=== PATIENT | male | born 1990 | race African-American/Black ===

== ENCOUNTER 2019-04-27 16:22 | Inpatient (IN) | payer OTHER ==
[~2019-04-27] VITALS: Ht 177.8 cm; Wt 65.4 kg
[2019-04-27 16:40] VITALS: BP 138/85
[2019-04-27] MEDS ORDERED: Albuterol ud Inhalation HHN ONE (16:45)
--- NOTE | 2019-04-27 17:00 | NUR ---
ED Nurse Note:pt. came with c/o chest pain on inhalation, pt. A/Ox4 ambulatory, EKG done , VSS, blood and urine sent to labs
[2019-04-27 17:08] LABS: BASOPHILS % (AUTO) 0.7 % (0.0-2.0); EOSINOPHILS % (AUTO) 1.2 % (0.0-3.0); HEMATOCRIT 44.9 % (42.0-52.0); HEMOGLOBIN 14.6 G/DL (14.2-18.0); LYMPHOCYTES % (AUTO) 19.4 % (20.0-45.0); MEAN CORPUSCULAR VOLUME 87 FL (80-99); MONOCYTES % (AUTO) 5.4 % (1.0-10.0); NEUTROPHILS % (AUTO) 73.4 % (45.0-75.0); PLATELET COUNT 304 K/UL (150-450); RED BLOOD COUNT 5.18 M/UL (4.70-6.10); RED CELL DISTRIBUTION WIDTH 12.6 % (11.6-14.8); WHITE BLOOD COUNT 10.1 K/UL (4.8-10.8)
--- NOTE | 2019-04-27 17:15 | Diagnostic Imaging Report ---
Indication: Chest pain and shortness of breath Technique: One view of the chest Comparison: none Findings: There is a very large right pneumothorax, probably greater than 70%. No definite mediastinal shift to suggest tension. The left lung and pleural space are clear. The heart size is normal. Impression: Massive right pneumothorax. No definite evidence of tension Critical value findings phoned to physician assistant Moseley in the emergency room at the time of interpretation
[2019-04-27 17:19] LABS: APPEARANCE,URINE CLEAR; BILIRUBIN, URINE NEGATIVE (NEGATIVE); GLUCOSE, URINE (UA) NEGATIVE (NEGATIVE); KETONES,URINE NEGATIVE (NEGATIVE); LEUKOCYTE ESTERASE ,URINE NEGATIVE (NEGATIVE); NITRITE,URINE NEGATIVE (NEGATIVE); PH,URINE 6 (4.5-8.0); PROTEIN,URINE NEGATIVE (NEGATIVE); UROBILINOGEN,URINE NORMAL MG/DL (0.0-1.0)
[2019-04-27 17:23] LABS: COLOR,URINE YELLOW
[2019-04-27 17:27] LABS: ANION GAP 9 mmol/L (5-15); BLOOD UREA NITROGEN 7 mg/dL (7-18); CALCIUM 9.7 MG/DL (8.5-10.1); CARBON DIOXIDE 27 MMOL/L (21-32); CHLORIDE 109 MMOL/L (98-107); POTASSIUM 3.9 MMOL/L (3.5-5.1); SODIUM 145 MMOL/L (136-145)
[2019-04-27 17:29] LABS: INR 0.9 (0.9-1.1)
[2019-04-27 17:32] LABS: ALANINE AMINOTRANSFERASE 26 U/L (12-78); ALBUMIN 3.9 G/DL (3.4-5.0); ALBUMIN/GLOBULIN RATIO 1.1 (1.0-2.7); ALKALINE PHOSPHATASE 75 U/L (46-116); ASPARTATE AMINO TRANSFERASE 21 U/L (15-37); BILIRUBIN,TOTAL 0.4 MG/DL (0.2-1.0)
--- NOTE | 2019-04-27 18:00 | NUR ---
ED Nurse Note: Dr Boateng at the bed side for chest tube insertion. Low intermittent suction at 40mmhg.
--- NOTE | 2019-04-27 18:04 | Consultation ---
History of Present Illness General Date patient seen: Apr 27, 2019 Reason for Hospitalization: Chest Pain Present Illness HPI 28[place] [facility] [place] right chest discomfort and pressure with associated shortness of breath with acute onset this afternoon. Came to ED for evaluation and noted to have right spontaneous pneumothorax. no prior episodes. +smoker. no n/v/f/c. labs noted. surgery called to evaluate and assist with tube thoracostomy. patient seen in ED, chart reviewed, patient examined. films reviewed. Allergies: Coded Allergies: No Known Allergies (Unverified , 04/27/19) Medication History No Active Prescriptions or Reported Meds Patient History History Provided By: Patient, Medical Record, PMD Healthcare decision maker Resuscitation status Advanced Directive on File Past Medical/Surgical History Past Medical/Surgical History: (1) Pneumothorax on right Review of Systems Review of Symptoms General ROS: no weight loss or fever Psychological ROS: no depression or mood changes, no memory loss Ophthalmic ROS: no visual changes or eye irritation ENT ROS: no nasal congestion, hearing loss, dizziness Allergy and Immunology ROS: no allergic symptoms or urticaria Hematological and Lymphatic ROS: no swollen glands, unusual bleeding or bruising Endocrine ROS: no polyuria, polydipsia, weight changes, temperature intolerance Respiratory ROS: no cough, +shortness of breath, or wheezing Cardiovascular ROS: no chest pain or dyspnea on exertion Gastrointestinal ROS: denies abdominal pain, no bright red blood in stool. Musculoskeletal ROS: no myalgias or arthralgias Neurological ROS: no TIA or stroke symptoms Dermatological ROS: no new or changing skin lesions, rashes or pruritis Physical Exam Physical Exam General appearance: alert, cooperative, no distress, appears stated age Head: Normocephalic, without obvious abnormality, atraumatic Eyes: conjunctivae/corneas clear. PERRL, EOM's intact. Fundi benign Throat: Lips, mucosa, and tongue normal. Teeth and gums normal Neck: supple, symmetrical, trachea midline, no adenopathy, thyroid: not enlarged, symmetric, no tenderness/mass/nodules, no carotid bruit and no JVD Lungs: clear to auscultation bilaterally but decreased on right Heart: regular rate and rhythm, S1, S2 normal, no murmur, click, rub or gallop Abdomen: soft, non-tender. Bowel sounds normal. No masses, no organomegaly Extremities: extremities normal, atraumatic, no cyanosis or edema Pulses: 2+ and symmetric Skin: Skin color, texture, turgor normal. No rashes or lesions Neurologic: Grossly normal Last 24 Hour Vital Signs Date Time Temp Pulse Resp B/P (MAP) Pulse Ox O2 Delivery O2 Flow Rate FiO2 04/27/19 16:54 71 20 98 Room Air 21 71 20 98 04/27/19 16:54 71 20 98 Room Air 21 04/27/19 16:40 98.1 76 18 138/85 98 Room Air 04/27/19 16:34 75 18 Room Air 04/27/19 16:25 98.1 75 18 138/85 (102) 98 Room Air Laboratory Tests Test 04/27/19 16:45 White Blood Count 10.1 K/UL (4.8-10.8) Red Blood Count 5.18 M/UL (4.70-6.10) Hemoglobin 14.6 G/DL (14.2-18.0) Hematocrit 44.9 % (42.0-52.0) Mean Corpuscular Volume 87 FL (80-99) Mean Corpuscular Hemoglobin 28.1 PG (27.0-31.0) Mean Corpuscular Hemoglobin Concent 32.5 G/DL (32.0-36.0) Red Cell Distribution Width 12.6 % (11.6-14.8) Platelet Count 304 K/UL (150-450) Mean Platelet Volume 6.0 FL (6.5-10.1) L Neutrophils (%) (Auto) 73.4 % (45.0-75.0) Lymphocytes (%) (Auto) 19.4 % (20.0-45.0) L Monocytes (%) (Auto) 5.4 % (1.0-10.0) Eosinophils (%) (Auto) 1.2 % (0.0-3.0) Basophils (%) (Auto) 0.7 % (0.0-2.0) Prothrombin Time 10.0 SEC (9.30-11.50) Prothromb Time International Ratio 0.9 (0.9-1.1) Activated Partial Thromboplast Time 27 SEC (23-33) Urine Color Yellow Urine Appearance Clear Urine pH 6 (4.5-8.0) Urine Specific [place] 1.015 (1.005-1.035) Urine Protein Negative (NEGATIVE) Urine Glucose (UA) Negative (NEGATIVE) Urine Ketones Negative (NEGATIVE) Urine Blood Negative (NEGATIVE) Urine Nitrite Negative (NEGATIVE) Urine Bilirubin Negative (NEGATIVE) Urine Urobilinogen Normal MG/DL (0.0-1.0) Urine Leukocyte Esterase Negative (NEGATIVE) Urine RBC 0-2 /HPF (0 - 0) H Urine WBC 0-2 /HPF (0 - 0) Urine Squamous Epithelial Cells None /LPF (NONE/OCC) Urine Bacteria None /HPF (NONE) Sodium Level 145 MMOL/L (136-145) Potassium Level 3.9 MMOL/L (3.5-5.1) Chloride Level 109 MMOL/L (98-107) H Carbon Dioxide Level 27 MMOL/L (21-32) Anion Gap 9 mmol/L (5-15) Blood Urea Nitrogen 7 mg/dL (7-18) Creatinine 1.0 MG/DL (0.55-1.30) Estimat Glomerular Filtration Rate > 60 mL/min (>60) Glucose Level 96 MG/DL (74-106) Calcium Level 9.7 MG/DL (8.5-10.1) Total Bilirubin 0.4 MG/DL (0.2-1.0) Aspartate Amino Transf (AST/SGOT) 21 U/L (15-37) Alanine Aminotransferase (ALT/SGPT) 26 U/L (12-78) Alkaline Phosphatase 75 U/L (46-116) Total Protein 7.3 G/DL (6.4-8.2) Albumin 3.9 G/DL (3.4-5.0) Globulin 3.4 g/dL Albumin/Globulin Ratio 1.1 (1.0-2.7) Urine Opiates Screen Negative (NEGATIVE) Urine Barbiturates Screen Negative (NEGATIVE) Phencyclidine (PCP) Screen Negative (NEGATIVE) Urine Amphetamines Screen Negative (NEGATIVE) Urine Benzodiazepines Screen Negative (NEGATIVE) Urine Cocaine Screen Negative (NEGATIVE) Urine Marijuana (THC) Screen Positive (NEGATIVE) H Height (Feet): 5 Height (Inches): 10.00 Weight (Pounds): 150 Assessment/Plan Problem List: (1) Pneumothorax on right Assessment & Plan: 28M with spontaneous right pneumothorax. afebrile, HD stable, sob, right chest pressure. CXR noted. labs okay Right tube thoracostomy placed in ED. see note Admit okay for diet chest tube to suction AM CXR will follow and manage tube thank you ICD Codes: J93.9 - Pneumothorax, unspecified SNOMED: [id number] Asif Boateng Apr 27, 2019 18:04
--- NOTE | 2019-04-27 18:05 | Brief Operative Note ---
Immediate Post Operative Note Operative Note Pre-op Diagnosis: right pneumothorax Procedure: right tube thoracostomy Post-op Diagnosis: same as pre-op Surgeon: jesús Anesthesia: local Specimen: none Complications: none Condition: stable Fluids: n/a Estimated Blood Loss: minimal Drains: other Implant(s) used?: Asif Enriquez Apr 27, 2019 18:05
--- NOTE | 2019-04-27 19:13 | NUR ---
HAND-OFF: Report given to Marisela SHUKLA.
--- NOTE | 2019-04-27 19:29 | Emergency Room Report ---
History of Present Illness General Chief Complaint: Chest Pain Source: Patient, Medical Record, PMD Present Illness HPI 28-year-old male with no significant past medical history here complaining of sudden onset of chest pain that started yesterday as well as shortness of breath. Patient reports that he occasionally smokes marijuana however he smoked a lot of marijuana yesterday. Denies palpitation, pain radiation to left arm or jaw. Denies dizziness and headache, blurry vision, abdominal pain, nausea vomiting. Patient denies history of asthma, smoking tobacco, alcohol intake and other drug use. Denies urinary symptoms. Has not taken medication for symptom relief. Is sitting comfortably with minimal shortness of breath. No wheezing noted however distant breath sounds auscultated. Patient has normal vital signs. Denies hemoptysis. Fall or injury, heavy lifting. Denies recent URI symptoms, fever and chills, cough. Denies pleuritic chest pain, swelling in legs, having a sedentary lifestyle, recent travel or operation. Allergies: Coded Allergies: No Known Allergies (Unverified , 04/27/19) Patient History Past Medical History: see triage record Past Surgical History: unable to obtain Pertinent Family History: unable to obtain Immunizations: UTD Reviewed Nursing Documentation: PMH: Agreed; PSxH: Agreed Nursing Documentation-PMH Past Medical History: No Stated History Review of Systems All Other Systems: negative except mentioned in HPI Physical Exam Vital Signs Date Time Temp Pulse Resp B/P (MAP) Pulse Ox O2 Delivery O2 Flow Rate FiO2 04/27/19 16:25 98.1 75 18 138/85 (102) 98 Room Air 04/27/19 16:54 21 Sp02 EP Interpretation: reviewed, normal General Appearance: alert, GCS 15, non-toxic, mild distress Head: normocephalic, atraumatic Eyes: bilateral eye normal inspection, bilateral eye PERRL ENT: hearing grossly normal, normal pharynx, no angioedema, normal voice Neck: full range of motion, supple/symm/no masses Respiratory: chest non-tender, no retraction, no accessory muscle use, no wheezing, speaking full sentences, other - Distant breath breath sounds noted, palpation of chest normal Cardiovascular #1: regular rate, rhythm, no edema, no murmur Cardiovascular #2: 2+ radial (R), 2+ radial (L) Gastrointestinal: normal bowel sounds, non tender, soft, non-distended, no guarding, no rebound Rectal: deferred Genitourinary: normal inspection, no CVA tenderness Musculoskeletal: back normal, gait/station normal, normal range of motion, non- tender, no calf tenderness Neurologic: alert, oriented x3, responsive, motor strength/tone normal, sensory intact, speech normal Psychiatric: judgement/insight normal, memory normal, mood/affect normal, no suicidal/homicidal ideation Skin: no rash Lymphatic: no adenopathy Medical Decision Making PA Attestation All my diagnosis and treatment plans were reviewed ad discussed with my supervising physician Dr. Solis Diagnostic Impression: Primary Impression: Pneumothorax, right ER Course 28-year-old male with no significant past medical history here complaining of sudden onset of chest pain that started yesterday as well as shortness of breath. Patient reports that he occasionally smokes marijuana however he smoked a lot of marijuana yesterday. Denies palpitation, pain radiation to left arm or jaw. Denies dizziness and headache, blurry vision, abdominal pain, nausea vomiting. Patient denies history of asthma, smoking tobacco, alcohol intake and other drug use. Denies urinary symptoms. Has not taken medication for symptom relief. Is sitting comfortably with minimal shortness of breath. No wheezing noted however distant breath sounds auscultated. Patient has normal vital signs. Denies hemoptysis. Fall or injury, heavy lifting. Denies recent URI symptoms, fever and chills, cough. Denies pleuritic chest pain, swelling in legs, having a sedentary lifestyle, recent travel or operation. Ddx considered but are not limited to: RI, Angina, COPD, GERD, , pneumothorax, pleural effusion, pneumonia Vital signs: are WNL, pt. is afebrile H&PE are most consistent with pneumothorax ORDERS: EKG, Chest XR, cardiac labs(troponin, CBC, CMP, lipid) ED INTERVENTIONS: Chest tube insertion, morphine Patient was admited with diagnosis of pneumothorax to Dr. Dallas under supervision of Dr.: Solis Chest tube insertion was done by . Patient was stable after chest tube insertion. pt stable at time of admission EKG Diagnostic Results Rate: normal Rhythm: NSR ST Segments: no acute changes Chest X-Ray Diagnostic Results Chest X-Ray Diagnostic Results : Chest X-Ray Ordered: Yes # of Views/Limited/Complete: 1 View Indication: Chest Pain EP Interpretation: Brittaney SHARMA Xray: Interpretation reviewed, by supervising MD, and agrees with findings. Interpretation: other - right pneumothorax Impression: Other - rigth pneumothorax Electronically Signed by: Paul Lindquist PA-C Last Vital Signs Date Time Temp Pulse Resp B/P (MAP) Pulse Ox O2 Delivery O2 Flow Rate FiO2 04/27/19 16:54 71 20 98 Room Air 21 71 20 98 04/27/19 16:40 98.1 138/85 Disposition: ADMITTED INPATIENT Condition: Stable Scripts No Active Prescriptions or Reported Meds Referrals: NON PHYSICIAN (PCP) Paul Purcell Apr 27, 2019 19:29
[2019-04-27] MEDS ORDERED: Morphine Sulfate 4mg/ml Inj (IV USE ONLY) IVP ONE (19:30)
--- NOTE | 2019-04-27 21:30 | NUR ---
TRANSFER TO FLOOR: Patient transferred to as ordered, per Dr Chacon. Report given to VAZQUEZ Trevino . Belongings and medications given to . Family and or S/O informed of transfer.
[2019-04-27 22:00] VITALS: BP 129/81
--- NOTE | 2019-04-27 22:30 | NUR ---
NURSE NOTES: Received patient and report from VAZQUEZ Antonio from ED, transported via gurney. Patient sitting in bed awake showing no signs of acute distress. AOx4. Respiration even and non labored on room air. No sob noted. Right chest tube drainage noted, dressing intact, on continuous suction. No drains noted. phototypesetting equipment monitor on showing sinus rhythm. Oriented to room and unit. VS stable. Call light within reach. Wheels locked, alarm on, side rails up x2 and bed in lowest position. Spoke with Dr. Martinez for admission orders, noted and carried out. All needs attended and met. Will continue plan of care.
--- NOTE | 2019-04-27 22:48 | Pulmonology Progress Note ---
Assessment/Plan Assessment/Plan Pulmonary Consultation HPI Patient is a 28-year-old male with no significant past medical history here complaining of sudden onset of chest pain that started yesterday while smoking a large joint, also c/o shortness of breath. Patient reports that he occasionally smokes marijuana however he smoked a lot of marijuana yesterday. Denies palpitation, pain radiation to left arm or jaw. Denies dizziness and headache, blurry vision, abdominal pain, nausea vomiting. Patient denies history of asthma, smoking tobacco, alcohol intake and other drug use. Denies urinary symptoms. Has not taken medication for symptom relief. Is sitting comfortably with minimal shortness of breath. No wheezing noted however distant breath sounds auscultated. Patient has normal vital signs. Denies hemoptysis. Fall or injury, heavy lifting. Denies recent URI symptoms, fever and chills, cough. Denies pleuritic chest pain, swelling in legs, having a sedentary lifestyle, recent travel or operation. No previous PTX. Allergies: No Known Allergies Past Medical History: No Stated History All Other Systems: negative except mentioned in HPI Physical Exam Vital Signs Noted Date Time Temp Pulse Resp B/P (MAP) Pulse Ox O2 Delivery O2 Flow Rate FiO2 04/27/19 16:25 98.1 75 18 138/85 (102) 98 Room Air 04/27/19 16:54 21 General Appearance: alert, GCS 15, non-toxic, mild distress Head: normocephalic, atraumatic Eyes: bilateral eye normal inspection, bilateral eye PERRL ENT: hearing grossly normal, normal pharynx, no angioedema, normal voice Neck: full range of motion, supple/symm/no masses, No LN Respiratory: chest non-tender, no retraction, no accessory muscle use, no wheezing, speaking full sentences, right chest tube, palpation of chest normal Cardiovascular: regular rate, rhythm, Normal HS, no edema, no murmur Gastrointestinal: normal bowel sounds, non tender, soft, non-distended, no guarding, no rebound Genitourinary: normal inspection, no CVA tenderness Musculoskeletal: back normal, gait/station normal, normal range of motion, non- tender, no calf tenderness, long fingers Neurologic: alert, oriented x3, responsive, motor strength/tone normal, sensory intact, speech normal Impression: Right spontaneous pneumothorax Plan: S/p Right chest tube O2 PRN Pain meds EKG: Rate: normal Rhythm: NSR ST Segments: no acute changes Chest X-Ray: Large right pneumothorax Subjective ROS Limited/Unobtainable: No Respiratory: Reports: shortness of breath Allergies: Coded Allergies: No Known Allergies (Unverified , 04/27/19) Objective Last 24 Hour Vital Signs Date Time Temp Pulse Resp B/P (MAP) Pulse Ox O2 Delivery O2 Flow Rate FiO2 04/27/19 21:30 98.1 76 20 138/85 98 Room Air 21 04/27/19 20:22 98.1 04/27/19 16:54 71 20 98 Room Air 21 71 20 98 04/27/19 16:54 71 20 98 Room Air 21 04/27/19 16:40 98.1 76 18 138/85 98 Room Air 04/27/19 16:34 75 18 Room Air 04/27/19 16:25 98.1 75 18 138/85 (102) 98 Room Air Microbiology Date/Time Source Procedure Growth Status 04/27/19 21:15 Rectum Received Laboratory Tests 04/27/19 16:45: White Blood Count 10.1, Red Blood Count 5.18, Hemoglobin 14.6, Hematocrit 44.9, Mean Corpuscular Volume 87, Mean Corpuscular Hemoglobin 28.1, Mean Corpuscular Hemoglobin Concent 32.5, Red Cell Distribution Width 12.6, Platelet Count 304, Mean Platelet Volume 6.0L, Neutrophils (%) (Auto) 73.4, Lymphocytes (%) (Auto) 19.4L, Monocytes (%) (Auto) 5.4, Eosinophils (%) (Auto) 1.2, Basophils (%) (Auto ) 0.7, Prothrombin Time 10.0, Prothromb Time International Ratio 0.9, Activated Partial Thromboplast Time 27, Urine Color Yellow, Urine Appearance Clear, Urine pH 6, Urine Specific [place] 1.015, Urine Protein Negative, Urine Glucose (UA) Negative, Urine Ketones Negative, Urine Blood Negative, Urine Nitrite Negative, Urine Bilirubin Negative, Urine Urobilinogen Normal, Urine Leukocyte Esterase Negative, Urine RBC 0-2H, Urine WBC 0-2, Urine Squamous Epithelial Cells None, Urine Bacteria None, Sodium Level 145, Potassium Level 3.9, Chloride Level 109H , Carbon Dioxide Level 27, Anion Gap 9, Blood Urea Nitrogen 7, Creatinine 1.0, Estimat Glomerular Filtration Rate > 60, Glucose Level 96, Calcium Level 9.7, Total Bilirubin 0.4, Aspartate Amino Transf (AST/SGOT) 21, Alanine Aminotransferase (ALT/SGPT) 26, Alkaline Phosphatase 75, Total Protein 7.3, Albumin 3.9, Globulin 3.4, Albumin/Globulin Ratio 1.1, Urine Opiates Screen Negative, Urine Barbiturates Screen Negative, Phencyclidine (PCP) Screen Negative, Urine Amphetamines Screen Negative, Urine Benzodiazepines Screen Negative, Urine Cocaine Screen Negative, Urine Marijuana (THC) Screen PositiveH Current Medications Medications (Trade) Dose Ordered Sig/Magda Route PRN Reason Start Time Stop Time Status Last Admin Dose Admin Acetaminophen (Tylenol) 650 mg Q4H PRN ORAL Mild Pain/Temp > 100.5 04/27/19 22:15 05/27/19 22:14 Merrick Hernandez MD Apr 27, 2019 22:48
[2019-04-27] MEDS ORDERED: Hydromorphone 0.5mg/0.5ml inj IVP PRN (23:00)
[2019-04-27] MEDS ORDERED: Albuterol/Ipratropium 3ml neb HHN PRN (23:00)
--- NOTE | 2019-04-27 23:15 | Operative Note - Dictated ---
DATE OF OPERATION: 04/27/2019 PREOPERATIVE DIAGNOSIS: Right spontaneous pneumothorax. POSTOPERATIVE DIAGNOSIS: Right spontaneous pneumothorax. OPERATION PERFORMED: Right tube thoracostomy. ATTENDING SURGEON: Asif Boateng M.D. LATHE SET UP PERSON: None. ANESTHESIOLOGIST: Not applicable. ANESTHESIA: Local anesthetic, lidocaine 1% with epinephrine. DRAINS: Right chest tube placed to Pleur-evac. WOUND CLASSIFICATION: Class I. COUNTS: Sponge and needle count correct x2. COMPLICATIONS: None. INDICATIONS FOR PROCEDURE: This is a 28-year-old male, who presented to [facility] Emergency Department complaining of worsening right-sided pressure and shortness of breath. Chest x-ray identified a right spontaneous pneumothorax. Right tube thoracostomy was indicated and recommended. Risks, benefits, and alternatives were discussed with the patient in detail, who expressed understanding and consented to surgery. OPERATIVE NOTE: The patient was made comfortable at the bedside in the emergency department. The right chest wall was prepped and draped in standard surgical fashion. The ribs were identified and the midaxillary line on the right side at the level the nipple was noted. This area was prepped and draped accordingly. Local anesthetic was infiltrated about the 6th intercostal rib margin. Once appropriate anesthetic effect was achieved with lidocaine 1% with epinephrine around the periosteum, muscles, skin and subcutaneous tissue, Seldinger technique was used to place a 10-Angolan pigtail tube thoracostomy. A finder needle was used and placed into the chest at approximately 6th rib intercostal space at the superior aspect of the rib margin. Once air flow was identified, a catheter sheath was forwarded over the needle. Guidewire was placed over the the catheter sheath and catheter sheath was removed. Following this, small skin incisions were made around the guidewire and the dilators were used and the tract dilated. Finally, a pigtail 10-Angolan tube was inserted over the guidewire without complication. Guidewire was removed and pigtail was initiated. The pigtail catheter was placed to the Pleur-evac, which was then placed to low suction. The site was again cleansed and appropriate dressings were applied followed by taping the tube to the patient to ensure it does not get dislodged. The patient tolerated the procedure well. Postprocedure x-ray was performed and the right lung was insufflated and no complication noted. The patient will be admitted following with chest tube suction until ready to be removed. We will monitor and manage tube. Asif Boateng M.D. DR: JILLIAN JOB#: [id number] CC:
[2019-04-28] VITALS: BP 118/68
[2019-04-28] MEDS: HYDROcodone/Acetamin 5/325 tab ORAL PRN ×3 (00:25→20:33)
[2019-04-28 04:00] VITALS: BP 113/73
[2019-04-28 06:53] LABS: BASOPHILS % (AUTO) 0.7 % (0.0-2.0); EOSINOPHILS % (AUTO) 3.6 % (0.0-3.0); HEMATOCRIT 39.6 % (42.0-52.0); HEMOGLOBIN 12.7 G/DL (14.2-18.0); LYMPHOCYTES % (AUTO) 26.7 % (20.0-45.0); MEAN CORPUSCULAR VOLUME 87 FL (80-99); MONOCYTES % (AUTO) 7.8 % (1.0-10.0); NEUTROPHILS % (AUTO) 61.2 % (45.0-75.0); PLATELET COUNT 251 K/UL (150-450); RED BLOOD COUNT 4.55 M/UL (4.70-6.10); RED CELL DISTRIBUTION WIDTH 12.7 % (11.6-14.8); WHITE BLOOD COUNT 8.6 K/UL (4.8-10.8)
[2019-04-28 06:58] LABS: ALANINE AMINOTRANSFERASE 24 U/L (12-78); ALBUMIN 3.3 G/DL (3.4-5.0); ALBUMIN/GLOBULIN RATIO 1.1 (1.0-2.7); ALKALINE PHOSPHATASE 67 U/L (46-116); ANION GAP 8 mmol/L (5-15); ASPARTATE AMINO TRANSFERASE 17 U/L (15-37); BILIRUBIN,TOTAL 0.6 MG/DL (0.2-1.0); BLOOD UREA NITROGEN 6 mg/dL (7-18); CALCIUM 8.9 MG/DL (8.5-10.1); CARBON DIOXIDE 26 MMOL/L (21-32); CHLORIDE 111 MMOL/L (98-107); POTASSIUM 3.9 MMOL/L (3.5-5.1); SODIUM 145 MMOL/L (136-145)
--- NOTE | 2019-04-28 07:10 | NUR ---
HAND-OFF: Report given to VAZQUEZ Chow.
--- NOTE | 2019-04-28 07:15 | NUR ---
NURSE NOTES: Received patient from VAZQUEZ Trevino. Patient is resting in bed, sleeping in stable condition. No signs of acute distress at this moment. Respiration non labored on room air. No sob noted. Chest tube is in place with no drainage.Call light and bed side table within reach, Bed in lowest position, with two side rails up, wheels locked and alarm on. Will continue to monitor and follow plan of care.
[2019-04-28 08:00] VITALS: BP 113/72
--- NOTE | 2019-04-28 09:32 | NUR ---
*-* NO INSURANCE INFORMATION IN THE BAR UNABLE TO SEND CLINICALS OR REVIEWS *-*
[2019-04-28 12:00] VITALS: BP 119/76
--- NOTE | 2019-04-28 12:30 | NUR ---
NURSE NOTES: Patient discharged home with hospice care per Dr. Fritz's order. All discharge instructions explained to patient's daughters , verbalized understanding. Heart monitor removed and returned to quality assurance monitor. IV removed. Patient went home with the ambulance provided by family with her daughters and in stable condition. Addendum: 04/28/19 at 1556 by DANICA DSOUZA RN RN NURSE NOTES: Charting in wrong patient.
--- NOTE | 2019-04-28 13:42 | Diagnostic Imaging Report ---
Indication: Pneumothorax. Follow-up. Comparison: 16:51 A single view chest radiograph was obtained. Findings: Current study performed at 18:03 Interval placement of a thoracic vent noted on the right. Subsequent complete pneumothorax resolution noted reexpansion of the right lung. Mediastinum trachea remains midline. Heart size is normal. Left lung remains clear. IMPRESSION: Interval resolution of pneumothorax following chest tube placement
--- NOTE | 2019-04-28 13:56 | NUR ---
*-* INSURANCE *--* ALL CLINICALS HAVE BEEN FAXED TO: [facility]: TAT...............[facility] P- [phone] f- [phone]....REVIEW/CLINICAL Addendum: 04/28/19 at 1357 by STANTON MICHELLE CM AMBER# [id number]
--- NOTE | 2019-04-28 14:12 | Pulmonology Progress Note ---
Assessment/Plan Assessment/Plan Pulmonary Progress Note HPI Patient is a 28-year-old male with no significant past medical history here complaining of sudden onset of chest pain that started yesterday while smoking a large joint, also c/o shortness of breath. Noted to have large R PTX, sp chest tube, Denies recent URI symptoms, fever and chills, cough. Denies pleuritic chest pain, swelling in legs, having a sedentary lifestyle, recent travel or operation. No previous PTX. Less SOB Allergies: No Known Allergies Past Medical History: No Stated History All Other Systems: negative except mentioned in HPI Physical Exam Vital Signs Noted General Appearance: alert, GCS 15, non-toxic, no distress Head: normocephalic, atraumatic Eyes: bilateral eye normal inspection, bilateral eye PERRL ENT: hearing grossly normal, normal pharynx, no angioedema, normal voice Neck: full range of motion, supple/symm/no masses, No LN Respiratory: chest non-tender, no retraction, no accessory muscle use, no wheezing, speaking full sentences, right chest tube, palpation of chest normal Cardiovascular: regular rate, rhythm, Normal HS, no edema, no murmur Gastrointestinal: normal bowel sounds, non tender, soft, non-distended, no guarding, no rebound Genitourinary: normal inspection, no CVA tenderness Musculoskeletal: back normal, gait/station normal, normal range of motion, non- tender, no calf tenderness, long fingers Neurologic: alert, oriented x3, responsive, motor strength/tone normal, sensory intact, speech normal Impression: Right spontaneous pneumothorax Plan: S/p Right chest tube O2 PRN Pain meds EKG: Rate: normal Rhythm: NSR ST Segments: no acute changes Chest X-Ray: Large right pneumothorax, resolved with R CT Subjective ROS Limited/Unobtainable: No Allergies: Coded Allergies: No Known Allergies (Unverified , 04/27/19) Objective Last 24 Hour Vital Signs Date Time Temp Pulse Resp B/P (MAP) Pulse Ox O2 Delivery O2 Flow Rate FiO2 04/28/19 12:00 72 04/28/19 12:00 98.5 69 17 119/76 (90) 99 04/28/19 09:00 Room Air Room Air 04/28/19 08:00 98.9 77 17 113/72 (86) 99 04/28/19 08:00 72 04/28/19 04:00 67 04/28/19 04:00 98.4 68 16 113/73 (86) 98 04/28/19 00:00 98.3 75 18 118/68 (85) 98 04/28/19 00:00 83 04/27/19 23:00 Room Air Room Air 04/27/19 23:00 Room Air Room Air 04/27/19 22:00 81 04/27/19 22:00 100.2 79 18 129/81 (97) 99 04/27/19 21:30 98.1 76 20 138/85 98 Room Air 21 04/27/19 20:22 98.1 04/27/19 16:54 71 20 98 Room Air 21 71 20 98 04/27/19 16:54 71 20 98 Room Air 21 04/27/19 16:40 98.1 76 18 138/85 98 Room Air 04/27/19 16:34 75 18 Room Air 04/27/19 16:25 98.1 75 18 138/85 (102) 98 Room Air Intake and Output 04/27/19 04/28/19 19:00 07:00 Intake Total 1120 ml 240 ml Balance 1120 ml 240 ml Intake Oral 120 ml 240 ml IV Total 1000 ml # Voids 1 Microbiology Date/Time Source Procedure Growth Status 04/27/19 21:15 Rectum Received Laboratory Tests 04/27/19 16:45: White Blood Count 10.1, Red Blood Count 5.18, Hemoglobin 14.6, Hematocrit 44.9, Mean Corpuscular Volume 87, Mean Corpuscular Hemoglobin 28.1, Mean Corpuscular Hemoglobin Concent 32.5, Red Cell Distribution Width 12.6, Platelet Count 304, Mean Platelet Volume 6.0L, Neutrophils (%) (Auto) 73.4, Lymphocytes (%) (Auto) 19.4L, Monocytes (%) (Auto) 5.4, Eosinophils (%) (Auto) 1.2, Basophils (%) (Auto ) 0.7, Prothrombin Time 10.0, Prothromb Time International Ratio 0.9, Activated Partial Thromboplast Time 27, Urine Color Yellow, Urine Appearance Clear, Urine pH 6, Urine Specific [place] 1.015, Urine Protein Negative, Urine Glucose (UA) Negative, Urine Ketones Negative, Urine Blood Negative, Urine Nitrite Negative, Urine Bilirubin Negative, Urine Urobilinogen Normal, Urine Leukocyte Esterase Negative, Urine RBC 0-2H, Urine WBC 0-2, Urine Squamous Epithelial Cells None, Urine Bacteria None, Sodium Level 145, Potassium Level 3.9, Chloride Level 109H , Carbon Dioxide Level 27, Anion Gap 9, Blood Urea Nitrogen 7, Creatinine 1.0, Estimat Glomerular Filtration Rate > 60, Glucose Level 96, Calcium Level 9.7, Total Bilirubin 0.4, Aspartate Amino Transf (AST/SGOT) 21, Alanine Aminotransferase (ALT/SGPT) 26, Alkaline Phosphatase 75, Total Protein 7.3, Albumin 3.9, Globulin 3.4, Albumin/Globulin Ratio 1.1, Urine Opiates Screen Negative, Urine Barbiturates Screen Negative, Phencyclidine (PCP) Screen Negative, Urine Amphetamines Screen Negative, Urine Benzodiazepines Screen Negative, Urine Cocaine Screen Negative, Urine Marijuana (THC) Screen PositiveH 04/28/19 06:01: White Blood Count 8.6, Red Blood Count 4.55L, Hemoglobin 12.7L, Hematocrit 39.6L , Mean Corpuscular Volume 87, Mean Corpuscular Hemoglobin 27.9, Mean Corpuscular Hemoglobin Concent 32.1, Red Cell Distribution Width 12.7, Platelet Count 251, Mean Platelet Volume 5.7L, Neutrophils (%) (Auto) 61.2, Lymphocytes ( %) (Auto) 26.7, Monocytes (%) (Auto) 7.8, Eosinophils (%) (Auto) 3.6H, Basophils (%) (Auto) 0.7, Sodium Level 145, Potassium Level 3.9, Chloride Level 111H, Carbon Dioxide Level 26, Anion Gap 8, Blood Urea Nitrogen 6L, Creatinine 1.0, Estimat Glomerular Filtration Rate > 60, Glucose Level 90, Calcium Level 8.9, Total Bilirubin 0.6, Aspartate Amino Transf (AST/SGOT) 17, Alanine Aminotransferase (ALT/SGPT) 24, Alkaline Phosphatase 67, Total Protein 6.3L, Albumin 3.3L, Globulin 3.0, Albumin/Globulin Ratio 1.1 Current Medications Medications (Trade) Dose Ordered Sig/Magda Route PRN Reason Start Time Stop Time Status Last Admin Dose Admin Acetaminophen (Tylenol) 650 mg Q4H PRN ORAL Mild Pain/Temp > 100.5 04/27/19 22:15 05/27/19 22:14 Acetaminophen/ Hydrocodone Bitart ([place] 5/325) 1 tab Q6H PRN ORAL For Moderate Pain 04/27/19 23:00 05/04/19 22:59 04/28/19 09:09 Albuterol/ Ipratropium (Albuterol/ Ipratropium) 3 ml Q6HR PRN HHN Shortness of Breath 04/27/19 23:00 05/02/19 22:59 Hydromorphone HCl (Dilaudid) 0.5 mg Q3HR PRN IVP For Severe Pain 04/27/19 23:00 05/04/19 22:59 Ondansetron HCl (Zofran) 4 mg Q6H PRN IVP Nausea & Vomiting 04/27/19 23:00 05/27/19 22:59 Merrick Hernandez MD Apr 28, 2019 14:12
[2019-04-28 16:00] VITALS: BP 119/85
--- NOTE | 2019-04-28 16:06 | Surgery Progress Note ---
Surgery Progress Note Subjective Procedure Performed right tube thoracostomy Symptoms: improved, tolerating diet, voiding well, passing flatus, pain decreased Objective Last 24 Hour Vital Signs Date Time Temp Pulse Resp B/P (MAP) Pulse Ox O2 Delivery O2 Flow Rate FiO2 04/28/19 12:00 72 04/28/19 12:00 98.5 69 17 119/76 (90) 99 04/28/19 09:00 Room Air Room Air 04/28/19 08:00 98.9 77 17 113/72 (86) 99 04/28/19 08:00 72 04/28/19 04:00 67 04/28/19 04:00 98.4 68 16 113/73 (86) 98 04/28/19 00:00 98.3 75 18 118/68 (85) 98 04/28/19 00:00 83 04/27/19 23:00 Room Air Room Air 04/27/19 23:00 Room Air Room Air 04/27/19 22:00 81 04/27/19 22:00 100.2 79 18 129/81 (97) 99 04/27/19 21:30 98.1 76 20 138/85 98 Room Air 21 04/27/19 20:22 98.1 04/27/19 16:54 71 20 98 Room Air 21 71 20 98 04/27/19 16:54 71 20 98 Room Air 21 04/27/19 16:40 98.1 76 18 138/85 98 Room Air 04/27/19 16:34 75 18 Room Air 04/27/19 16:25 98.1 75 18 138/85 (102) 98 Room Air I&O Intake and Output 04/27/19 04/28/19 19:00 07:00 Intake Total 1120 ml 240 ml Balance 1120 ml 240 ml Intake Oral 120 ml 240 ml IV Total 1000 ml # Voids 1 Dressing: dry Wound: clean Cardiovascular: RSR Respiratory: clear Abdomen: soft, flat, non-tender, present bowel sounds, non-distended Extremities: no edema, no tenderness, no cyanosis Laboratory Tests Test 04/27/19 16:45 04/28/19 06:01 White Blood Count 10.1 K/UL (4.8-10.8) 8.6 K/UL (4.8-10.8) Red Blood Count 5.18 M/UL (4.70-6.10) 4.55 M/UL (4.70-6.10) L Hemoglobin 14.6 G/DL (14.2-18.0) 12.7 G/DL (14.2-18.0) L Hematocrit 44.9 % (42.0-52.0) 39.6 % (42.0-52.0) L Mean Corpuscular Volume 87 FL (80-99) 87 FL (80-99) Mean Corpuscular Hemoglobin 28.1 PG (27.0-31.0) 27.9 PG (27.0-31.0) Mean Corpuscular Hemoglobin Concent 32.5 G/DL (32.0-36.0) 32.1 G/DL (32.0-36.0) Red Cell Distribution Width 12.6 % (11.6-14.8) 12.7 % (11.6-14.8) Platelet Count 304 K/UL (150-450) 251 K/UL (150-450) Mean Platelet Volume 6.0 FL (6.5-10.1) L 5.7 FL (6.5-10.1) L Neutrophils (%) (Auto) 73.4 % (45.0-75.0) 61.2 % (45.0-75.0) Lymphocytes (%) (Auto) 19.4 % (20.0-45.0) L 26.7 % (20.0-45.0) Monocytes (%) (Auto) 5.4 % (1.0-10.0) 7.8 % (1.0-10.0) Eosinophils (%) (Auto) 1.2 % (0.0-3.0) 3.6 % (0.0-3.0) H Basophils (%) (Auto) 0.7 % (0.0-2.0) 0.7 % (0.0-2.0) Prothrombin Time 10.0 SEC (9.30-11.50) Prothromb Time International Ratio 0.9 (0.9-1.1) Activated Partial Thromboplast Time 27 SEC (23-33) Urine Color Yellow Urine Appearance Clear Urine pH 6 (4.5-8.0) Urine Specific [place] 1.015 (1.005-1.035) Urine Protein Negative (NEGATIVE) Urine Glucose (UA) Negative (NEGATIVE) Urine Ketones Negative (NEGATIVE) Urine Blood Negative (NEGATIVE) Urine Nitrite Negative (NEGATIVE) Urine Bilirubin Negative (NEGATIVE) Urine Urobilinogen Normal MG/DL (0.0-1.0) Urine Leukocyte Esterase Negative (NEGATIVE) Urine RBC 0-2 /HPF (0 - 0) H Urine WBC 0-2 /HPF (0 - 0) Urine Squamous Epithelial Cells None /LPF (NONE/OCC) Urine Bacteria None /HPF (NONE) Sodium Level 145 MMOL/L (136-145) 145 MMOL/L (136-145) Potassium Level 3.9 MMOL/L (3.5-5.1) 3.9 MMOL/L (3.5-5.1) Chloride Level 109 MMOL/L (98-107) H 111 MMOL/L (98-107) H Carbon Dioxide Level 27 MMOL/L (21-32) 26 MMOL/L (21-32) Anion Gap 9 mmol/L (5-15) 8 mmol/L (5-15) Blood Urea Nitrogen 7 mg/dL (7-18) 6 mg/dL (7-18) L Creatinine 1.0 MG/DL (0.55-1.30) 1.0 MG/DL (0.55-1.30) Estimat Glomerular Filtration Rate > 60 mL/min (>60) > 60 mL/min (>60) Glucose Level 96 MG/DL (74-106) 90 MG/DL (74-106) Calcium Level 9.7 MG/DL (8.5-10.1) 8.9 MG/DL (8.5-10.1) Total Bilirubin 0.4 MG/DL (0.2-1.0) 0.6 MG/DL (0.2-1.0) Aspartate Amino Transf (AST/SGOT) 21 U/L (15-37) 17 U/L (15-37) Alanine Aminotransferase (ALT/SGPT) 26 U/L (12-78) 24 U/L (12-78) Alkaline Phosphatase 75 U/L (46-116) 67 U/L (46-116) Total Protein 7.3 G/DL (6.4-8.2) 6.3 G/DL (6.4-8.2) L Albumin 3.9 G/DL (3.4-5.0) 3.3 G/DL (3.4-5.0) L Globulin 3.4 g/dL 3.0 g/dL Albumin/Globulin Ratio 1.1 (1.0-2.7) 1.1 (1.0-2.7) Urine Opiates Screen Negative (NEGATIVE) Urine Barbiturates Screen Negative (NEGATIVE) Phencyclidine (PCP) Screen Negative (NEGATIVE) Urine Amphetamines Screen Negative (NEGATIVE) Urine Benzodiazepines Screen Negative (NEGATIVE) Urine Cocaine Screen Negative (NEGATIVE) Urine Marijuana (THC) Screen Positive (NEGATIVE) H Plan Problems: (1) Pneumothorax on right Assessment & Plan: 28M with spontaneous right pneumothorax. afebrile, HD stable, sob, right chest pressure. CXR noted. labs okay Right tube thoracostomy placed in ED. see note okay for diet chest tube to suction AM CXR will follow and manage tube thank you Asif Boateng Apr 28, 2019 16:06
--- NOTE | 2019-04-28 16:10 | NUR ---
CASE MANAGEMENT:REVIEW 28 YR OLD MALE PRESENTED TO ER CC; CHEST PAIN SI: RT SIDED PNEUMOTHORAX 98.1 75 18 138/85 98% ON RA IS: RT TUBE THORACOSTOMY LOW INTERMITTENT SUCTION 1L NS BOLUS ALBUTEROL HHN CHEST XRAY : TO TELEMETRY UNIT INTERQUAL CRITERIA MET
--- NOTE | 2019-04-28 17:20 | NUR ---
TRANSFER TO FLOOR: Patient transferred to Med-Surg, per Dr. Boateng's order. Report given to VAZQUEZ Greenberg. Belongings given to receiving nurse. Patient transferred with chest tube and in stable condition.
--- NOTE | 2019-04-28 17:47 | NUR ---
NURSE NOTES: Patient transfered from Tele and received report from VAZQUEZ Wagoner; patient awake, alert x4, on room air, no sing of distress and shortness of breath; no sing of chest pain; IV RAC 20G, flushes well; patient has Right upper chest tube, dressing dry and intact; belonging list signed by transferring and receiving nurse; side rails up x2, bed at lowest position, breaks engaged; call light within reach; will keep monitoring.
[2019-04-28] MEDS ORDERED: Albuterol/Ipratropium 3ml neb HHN PRN (18:00)
[2019-04-28] MEDS ORDERED: Hydromorphone 0.5mg/0.5ml inj IVP PRN (18:00)
--- NOTE | 2019-04-28 19:15 | NUR ---
NURSE NOTES: Received patient resting in bed. AAO x 4, on room air. R chest tube is intact and dressing is dry. IV site is intact and patent. No acute distress noted at this time. Bed locked, lowest position, side rails up x 2, call light within reach. Will continue to monitor.
--- NOTE | 2019-04-28 19:33 | NUR ---
HAND-OFF: Report given to VAZQUEZ Lowe.
[2019-04-28 20:00] VITALS: BP 108/69
--- NOTE | 2019-04-28 20:37 | NUR ---
NURSE NOTES: Patient c/o pain 4/10 on R posterior chest. Pt wants take [place]. Will continue to monitor.
--- NOTE | 2019-04-28 23:00 | History and Physical Report ---
DATE OF ADMISSION: 04/27/2019 HISTORY OF PRESENT ILLNESS: The patient is being admitted for shortness of breath for 2 days. Also complains of chest pain, worse with deep inspiration. The patient admitted for spontaneous pneumothorax on the right side. Dr. Boateng already. The patient denies cough. Denies any cold symptoms. PAST MEDICAL HISTORY: None. SOCIAL HISTORY: Has history of marijuana. No history of smoking. No history of alcohol abuse. MEDICATIONS: None. PAST SURGICAL HISTORY: None. ALLERGIES: No known allergies. FAMILY HISTORY: Noncontributory. REVIEW OF SYSTEMS: HEENT: Denies headaches. RESPIRATORY: Reports shortness of breath for 2 days. No cough. CARDIOVASCULAR: Denies chest pain. GASTROINTESTINAL: Denies nausea, vomiting, diarrhea. EXTREMITIES: Denies pain in the lower extremities. CENTRAL NERVOUS SYSTEM: Denies any change in vision or speech pattern. PHYSICAL EXAMINATION: VITAL SIGNS: Basically his temperature is 98.4, pulse is 67, blood pressure 130/73. HEENT: PERRLA. NECK: Supple. No lymphadenopathy. CHEST: Clear to auscultation. CARDIOVASCULAR: Regular rate and rhythm. No murmurs or extra sounds. ABDOMEN: Soft, nontender, nondistended. No organomegaly. EXTREMITIES: No edema. Moves all four extremities. CENTRAL NERVOUS SYSTEM: Sensory intact to light touch. Reflexes equal on both sides. LABORATORY DATA: Essentially normal. ASSESSMENT AND PLAN: Pneumothorax, shortness of breath, . I have asked Dr. Boateng, Dr. Hernandez, Dr. Melo, and Dr. Monte to see the patient for the above-mentioned diagnoses and also for the treatment. Leanne Martinez M.D. DR: HARLEEN JOB#: [id number] CC:
[2019-04-29] VITALS (7 sets, daily range): BP systolic 104–129; BP diastolic 71–86
[2019-04-29 05:50] LABS: BASOPHILS % (AUTO) 0.6 % (0.0-2.0); EOSINOPHILS % (AUTO) 5.5 % (0.0-3.0); HEMATOCRIT 42.4 % (42.0-52.0); LYMPHOCYTES % (AUTO) 24.9 % (20.0-45.0); MEAN CORPUSCULAR VOLUME 87 FL (80-99); MONOCYTES % (AUTO) 7.6 % (1.0-10.0); NEUTROPHILS % (AUTO) 61.4 % (45.0-75.0); PLATELET COUNT 287 K/UL (150-450); RED BLOOD COUNT 4.88 M/UL (4.70-6.10); RED CELL DISTRIBUTION WIDTH 12.5 % (11.6-14.8)
[2019-04-29 06:23] LABS: ANION GAP 8 mmol/L (5-15); BLOOD UREA NITROGEN 10 mg/dL (7-18); CALCIUM 9.2 MG/DL (8.5-10.1); CARBON DIOXIDE 28 MMOL/L (21-32); CHLORIDE 106 MMOL/L (98-107); CREATININE 0.9 MG/DL (0.55-1.30); POTASSIUM 3.9 MMOL/L (3.5-5.1); SODIUM 142 MMOL/L (136-145)
--- NOTE | 2019-04-29 07:45 | NUR ---
NURSE NOTES: Report received from Nohemy SHUKLA, rounds made. Patient resting in semi-fowlers position in bed. Alert, oriented x4, calm. Denies SOB on RA, no cough noted, lungs clear. No pain or NV. RAC heplock intact, site asymptomatic. Right lateral chest tube dressing CDI, connected to Chest Tube Drainage System (which is taped to the floor), water bubbling in compartment, tubing secured and unkinked. Instructed/demonstrated on IS use, patient able to do 2000 ml, will reinforce throughout shift. Bilateral SCDs on. Call light in reach, bed in lowest position, will continue to monitor.
--- NOTE | 2019-04-29 07:51 | NUR ---
HAND-OFF: Report given to VAZQUEZ Cabello.
--- NOTE | 2019-04-29 08:10 | NUR ---
CASE MANAGEMENT: REVIEW 04/29/2019 SI: RT SIDED PNEUMOTHORAX T 98.3 HR 58 RR 18 B/P 111/71 SATS 96% ON RA HCT 14 IS: [place] 5/325 Q6H PRN : MED/SURG STATUS
--- NOTE | 2019-04-29 08:52 | NUR ---
RADIOLOGY DEPT., CHEST X-RAY DONE.-P.DYE
--- NOTE | 2019-04-29 09:29 | Diagnostic Imaging Report ---
Indication: Dyspnea Technique: One view of the chest Comparison: 04/27/2019 Findings: Pigtail catheter in the right hemithorax again noted no pneumothorax. Lungs and pleural spaces remain clear. The heart size is normal. Impression: Smallbore right chest tube in place. No pneumothorax. 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
[2019-04-29] MEDS: HYDROcodone/Acetamin 5/325 tab ORAL PRN ×2 (09:55→23:53)
--- NOTE | 2019-04-29 12:19 | Surgery Progress Note ---
Surgery Progress Note Subjective Procedure Performed right tube thoracostomy Additional Comments doing well no acute events exam stable comfortable no complaints no n/v/f/c cxr stable no air leak Objective Last 24 Hour Vital Signs Date Time Temp Pulse Resp B/P (MAP) Pulse Ox O2 Delivery O2 Flow Rate FiO2 04/29/19 09:00 Room Air Room Air Room Air 04/29/19 08:00 99.3 61 18 104/74 (84) 100 04/29/19 04:00 98.3 58 18 111/71 (84) 96 04/29/19 00:00 98.2 63 20 114/75 (88) 99 04/28/19 21:00 Room Air Room Air Room Air 04/28/19 20:00 98.1 72 20 108/69 (82) 98 04/28/19 19:45 68 18 99 Room Air 21 04/28/19 16:00 97.7 73 18 119/85 (96) 97 04/28/19 16:00 72 I&O Intake and Output 04/28/19 04/29/19 19:00 07:00 Intake Total 800 ml Output Total 25 ml Balance 800 ml -25 ml Other 800 ml Chest Tube Drainage Total 25 ml # Voids 3 Dressing: dry Wound: clean Cardiovascular: RSR Respiratory: clear Abdomen: soft, flat, non-tender, present bowel sounds Extremities: no tenderness, no cyanosis Laboratory Tests Test 04/29/19 05:20 White Blood Count 8.0 K/UL (4.8-10.8) Red Blood Count 4.88 M/UL (4.70-6.10) Hemoglobin 14.0 G/DL (14.2-18.0) L Hematocrit 42.4 % (42.0-52.0) Mean Corpuscular Volume 87 FL (80-99) Mean Corpuscular Hemoglobin 28.6 PG (27.0-31.0) Mean Corpuscular Hemoglobin Concent 33.0 G/DL (32.0-36.0) Red Cell Distribution Width 12.5 % (11.6-14.8) Platelet Count 287 K/UL (150-450) Mean Platelet Volume 5.5 FL (6.5-10.1) L Neutrophils (%) (Auto) 61.4 % (45.0-75.0) Lymphocytes (%) (Auto) 24.9 % (20.0-45.0) Monocytes (%) (Auto) 7.6 % (1.0-10.0) Eosinophils (%) (Auto) 5.5 % (0.0-3.0) H Basophils (%) (Auto) 0.6 % (0.0-2.0) Sodium Level 142 MMOL/L (136-145) Potassium Level 3.9 MMOL/L (3.5-5.1) Chloride Level 106 MMOL/L (98-107) Carbon Dioxide Level 28 MMOL/L (21-32) Anion Gap 8 mmol/L (5-15) Blood Urea Nitrogen 10 mg/dL (7-18) Creatinine 0.9 MG/DL (0.55-1.30) Estimat Glomerular Filtration Rate > 60 mL/min (>60) Glucose Level 90 MG/DL (74-106) Calcium Level 9.2 MG/DL (8.5-10.1) Plan Problems: (1) Pneumothorax on right Assessment & Plan: 28M with spontaneous right pneumothorax. afebrile, HD stable, sob, right chest pressure. CXR noted. labs okay Right tube thoracostomy placed in ED. see note okay for diet chest tube to suction plan to place tube to water seal tomorrow AM CXR will follow and manage tube thank you Asif Boateng Apr 29, 2019 12:19
--- NOTE | 2019-04-29 15:14 | Pulmonology Progress Note ---
Assessment/Plan Assessment/Plan Pulmonary Progress Note HPI Patient is a 28-year-old male with no significant past medical history here complaining of sudden onset of chest pain that started yesterday while smoking a large joint, also c/o shortness of breath. Noted to have large R PTX, sp chest tube, Denies recent URI symptoms, fever and chills, cough. Denies pleuritic chest pain, swelling in legs, having a sedentary lifestyle, recent travel or operation. No previous PTX. Less SOB, still had CT - no leak, CXR stable, no PTX Allergies: No Known Allergies Past Medical History: No Stated History All Other Systems: negative except mentioned in HPI Physical Exam Vital Signs Noted General Appearance: alert, GCS 15, non-toxic, no distress Head: normocephalic, atraumatic Eyes: bilateral eye normal inspection, bilateral eye PERRL ENT: hearing grossly normal, normal pharynx, no angioedema, normal voice Neck: full range of motion, supple/symm/no masses, No LN Respiratory: chest non-tender, no retraction, no accessory muscle use, no wheezing, speaking full sentences, right chest tube, palpation of chest normal Cardiovascular: regular rate, rhythm, Normal HS, no edema, no murmur Gastrointestinal: normal bowel sounds, non tender, soft, non-distended, no guarding, no rebound Genitourinary: normal inspection, no CVA tenderness Musculoskeletal: back normal, gait/station normal, normal range of motion, non- tender, no calf tenderness, long fingers Neurologic: alert, oriented x3, responsive, motor strength/tone normal, sensory intact, speech normal Impression: Right spontaneous pneumothorax Plan: S/p Right chest tube O2 PRN Pain meds EKG: Rate: normal Rhythm: NSR ST Segments: no acute changes Chest X-Ray: Large right pneumothorax, resolved with R CT Subjective ROS Limited/Unobtainable: No Allergies: Coded Allergies: No Known Allergies (Unverified , 04/27/19) Objective Last 24 Hour Vital Signs Date Time Temp Pulse Resp B/P (MAP) Pulse Ox O2 Delivery O2 Flow Rate FiO2 04/29/19 12:38 57 20 99 Room Air 21 04/29/19 12:00 97.0 68 18 116/76 (89) 100 04/29/19 09:00 Room Air Room Air Room Air 04/29/19 08:00 99.3 61 18 104/74 (84) 100 04/29/19 04:00 98.3 58 18 111/71 (84) 96 04/29/19 00:00 98.2 63 20 114/75 (88) 99 04/28/19 21:00 Room Air Room Air Room Air 04/28/19 20:00 98.1 72 20 108/69 (82) 98 04/28/19 19:45 68 18 99 Room Air 21 04/28/19 16:00 97.7 73 18 119/85 (96) 97 04/28/19 16:00 72 Intake and Output 04/28/19 04/29/19 19:00 07:00 Intake Total 800 ml Output Total 25 ml Balance 800 ml -25 ml Other 800 ml Chest Tube Drainage Total 25 ml # Voids 3 Microbiology Date/Time Source Procedure Growth Status 04/27/19 21:15 Rectum Received Laboratory Tests 04/29/19 05:20: White Blood Count 8.0, Red Blood Count 4.88, Hemoglobin 14.0L, Hematocrit 42.4, Mean Corpuscular Volume 87, Mean Corpuscular Hemoglobin 28.6, Mean Corpuscular Hemoglobin Concent 33.0, Red Cell Distribution Width 12.5, Platelet Count 287, Mean Platelet Volume 5.5L, Neutrophils (%) (Auto) 61.4, Lymphocytes (%) (Auto) 24.9, Monocytes (%) (Auto) 7.6, Eosinophils (%) (Auto) 5.5H, Basophils (%) (Auto ) 0.6, Sodium Level 142, Potassium Level 3.9, Chloride Level 106, Carbon Dioxide Level 28, Anion Gap 8, Blood Urea Nitrogen 10, Creatinine 0.9, Estimat Glomerular Filtration Rate > 60, Glucose Level 90, Calcium Level 9.2 Current Medications Medications (Trade) Dose Ordered Sig/Magda Route PRN Reason Start Time Stop Time Status Last Admin Dose Admin Acetaminophen (Tylenol) 650 mg Q4H PRN ORAL Mild Pain/Temp > 100.5 04/28/19 18:15 05/27/19 22:14 Acetaminophen/ Hydrocodone Bitart ([place] 5/325) 1 tab Q6H PRN ORAL For Moderate Pain 04/28/19 17:30 05/04/19 17:29 04/29/19 09:55 Albuterol/ Ipratropium (Albuterol/ Ipratropium) 3 ml Q6H PRN HHN Shortness of Breath 04/28/19 18:00 05/03/19 17:59 Hydromorphone HCl (Dilaudid) 0.5 mg Q3H PRN IVP For Severe Pain 04/28/19 18:00 05/05/19 17:59 Ondansetron HCl (Zofran) 4 mg Q6H PRN IVP Nausea & Vomiting 04/28/19 17:30 05/27/19 17:29 Merrick Hernandez MD Apr 29, 2019 15:14
--- NOTE | 2019-04-29 16:09 | NUR ---
*-* INSURANCE *--* ALL CLINICALS HAVE BEEN FAXED TO: [employer]: TAT...............[place] P- [phone] F- [phone]....REVIEW/CLINICAL TRK# [id number]
--- NOTE | 2019-04-29 18:30 | NUR ---
NURSE NOTES: Chest tube in place to right lateral chest. Dressing remains CDI, surrounding skin intact, no redness/swelling or drainage. All tubing remains untangled/unkinked throughout shift. Connected to low continuous suction. Water chamber bubbling consistently. No complains of SOB or chest pain. No chest tube output for day shift. Will endorse to next shift.
--- NOTE | 2019-04-29 19:22 | NUR ---
HAND-OFF: Report given to Dianne SHUKLA. Endorsed that chest tube had no output for day shift.
--- NOTE | 2019-04-29 19:53 | NUR ---
NURSE NOTES: Received patient in bed, awake, alert, oriented, chest tube in place, taped to the floor, tubes are straight and un kinked , no acute distress noted, VSS, afebrile, call light is within reach, bed is lowered, locked and alarm is on, IV site is clean dry and intact. Will continue to monitor for safety and comfort.
--- NOTE | 2019-04-29 20:15 | General Progress Note ---
Assessment/Plan Problem List: (1) Pneumothorax on right ICD Codes: J93.9 - Pneumothorax, unspecified SNOMED: 946777820 Status: progressing Assessment/Plan: pneumothorax pigtial on the right afebrile Subjective Respiratory: Reports: shortness of breath Allergies: Coded Allergies: No Known Allergies (Unverified , 04/27/19) Objective Last 24 Hour Vital Signs Date Time Temp Pulse Resp B/P (MAP) Pulse Ox O2 Delivery O2 Flow Rate FiO2 04/29/19 20:03 78 20 98 Room Air 21 04/29/19 16:00 98.6 69 18 113/74 (87) 99 04/29/19 12:38 57 20 99 Room Air 21 04/29/19 12:00 97.0 68 18 116/76 (89) 100 04/29/19 09:00 Room Air Room Air Room Air 04/29/19 08:00 99.3 61 18 104/74 (84) 100 04/29/19 04:00 98.3 58 18 111/71 (84) 96 04/29/19 00:00 98.2 63 20 114/75 (88) 99 04/28/19 21:00 Room Air Room Air Room Air Intake and Output 04/28/19 04/29/19 19:00 07:00 Intake Total 800 ml Output Total 25 ml Balance 800 ml -25 ml Other 800 ml Chest Tube Drainage Total 25 ml # Voids 3 Laboratory Tests 04/29/19 05:20: White Blood Count 8.0, Red Blood Count 4.88, Hemoglobin 14.0L, Hematocrit 42.4, Mean Corpuscular Volume 87, Mean Corpuscular Hemoglobin 28.6, Mean Corpuscular Hemoglobin Concent 33.0, Red Cell Distribution Width 12.5, Platelet Count 287, Mean Platelet Volume 5.5L, Neutrophils (%) (Auto) 61.4, Lymphocytes (%) (Auto) 24.9, Monocytes (%) (Auto) 7.6, Eosinophils (%) (Auto) 5.5H, Basophils (%) (Auto ) 0.6, Sodium Level 142, Potassium Level 3.9, Chloride Level 106, Carbon Dioxide Level 28, Anion Gap 8, Blood Urea Nitrogen 10, Creatinine 0.9, Estimat Glomerular Filtration Rate > 60, Glucose Level 90, Calcium Level 9.2 Height (Feet): 5 Height (Inches): 10.00 Weight (Pounds): 144 Neck: normal inspection Cardiovascular: normal rate Respiratory/Chest: lungs clear Leanne Martinez MD Apr 29, 2019 20:15
[2019-04-30 04:00] VITALS: BP 106/70
--- NOTE | 2019-04-30 06:58 | NUR ---
HAND-OFF: Report given to Destiney SHUKLA.
--- NOTE | 2019-04-30 07:00 | NUR ---
NURSE NOTES: Report received from Dianne SHUKLA, rounds made. Patient resting in semi-fowlers position in bed. Alert, oriented x4 calm. No distress on RA, no cough noted, lungs clear. Right lateral axillary dressing CDI, tubing to chest tube drainage system (taped to floor) intact, unkinked, connected to low continuous suction, water chamber bubbling continuously. Bilateral SCDs on. Skin warm. Moves all extremities. Denies pain at this time. Call light in reach, bed in lowest position, will continue to monitor.
[2019-04-30 08:00] VITALS: BP 117/75
--- NOTE | 2019-04-30 10:41 | Surgery Progress Note ---
Surgery Progress Note Subjective Procedure Performed right tube thoracostomy Additional Comments doing well chest tube placed to water seal today no complaints Objective Last 24 Hour Vital Signs Date Time Temp Pulse Resp B/P (MAP) Pulse Ox O2 Delivery O2 Flow Rate FiO2 04/30/19 08:00 97.7 82 16 117/75 (89) 98 04/30/19 04:00 97.6 55 16 106/70 (82) 04/29/19 23:46 97.8 74 18 129/85 (100) 04/29/19 21:10 Room Air Room Air Room Air 04/29/19 20:03 78 20 98 Room Air 21 04/29/19 20:00 97.8 77 18 127/86 (100) 04/29/19 16:00 98.6 69 18 113/74 (87) 99 04/29/19 12:38 57 20 99 Room Air 21 04/29/19 12:00 97.0 68 18 116/76 (89) 100 I&O Intake and Output 04/29/19 04/30/19 18:59 06:59 Intake Total 1100 ml Output Total 600 ml 500 ml Balance 500 ml -500 ml Intake Oral 1100 ml Output Urine Total 600 ml Stool Total 500 ml Chest Tube Drainage Total 0 ml 0 ml # Voids 1 # Bowel Movements 1 Dressing: dry Wound: clean Cardiovascular: RSR Respiratory: clear Abdomen: soft, non-tender, present bowel sounds Extremities: no tenderness, no cyanosis Plan Problems: (1) Pneumothorax on right Assessment & Plan: 28M with spontaneous right pneumothorax. afebrile, HD stable, sob, right chest pressure. CXR noted. labs okay Right tube thoracostomy placed in ED. see note okay for diet tube to water seal AM CXR will follow and manage tube thank you Asif Boateng Apr 30, 2019 10:41
[2019-04-30 12:00] VITALS: BP 112/65
--- NOTE | 2019-04-30 13:27 | NUR ---
CASE MANAGEMENT: REVIEW 04/30/2019 SI: RT SIDED PNEUMOTHORAX 98.4 72 16 112/65 99% ON RA IS: [place] 5/325 Q6H PRN : MED/SURG STATUS PLAN: CHEST TUBE TO WATER SEAL TODAY DAILY CHEST XRAY'S
--- NOTE | 2019-04-30 13:28 | Diagnostic Imaging Report ---
Indication: History of pneumothorax. Follow-up for chest tube placement Comparison: 04/29/2019 A single view chest radiograph was obtained. Findings: There is no change. Right small caliber chest tube again noted. There is no pneumothorax. Lungs appear symmetric. Heart size remains normal. IMPRESSION: No change.
--- NOTE | 2019-04-30 15:06 | NUR ---
*-* INSURANCE *--* ALL CLINICALS HAVE BEEN FAXED TO: [facility]: TAT...............[facility] P- [phone] F- [phone]....REVIEW/CLINICAL
[2019-04-30 16:00] VITALS: BP 105/61
--- NOTE | 2019-04-30 16:19 | Pulmonology Progress Note ---
Assessment/Plan Assessment/Plan Pulmonary Progress Note HPI Patient is a 28-year-old male with no significant past medical history here complaining of sudden onset of chest pain that started yesterday while smoking a large joint, also c/o shortness of breath. Noted to have large R PTX, sp chest tube, Denies recent URI symptoms, fever and chills, cough. Denies pleuritic chest pain, swelling in legs, having a sedentary lifestyle, recent travel or operation. No previous PTX. Less SOB, still had CT - no leak, CXR stable, no PTX Allergies: No Known Allergies Past Medical History: No Stated History All Other Systems: negative except mentioned in HPI Physical Exam Vital Signs Noted General Appearance: alert, GCS 15, non-toxic, no distress Head: normocephalic, atraumatic Eyes: bilateral eye normal inspection, bilateral eye PERRL ENT: hearing grossly normal, normal pharynx, no angioedema, normal voice Neck: full range of motion, supple/symm/no masses, No LN Respiratory: chest non-tender, no retraction, no accessory muscle use, no wheezing, speaking full sentences, right chest tube, palpation of chest normal Cardiovascular: regular rate, rhythm, Normal HS, no edema, no murmur Gastrointestinal: normal bowel sounds, non tender, soft, non-distended, no guarding, no rebound Genitourinary: normal inspection, no CVA tenderness Musculoskeletal: back normal, gait/station normal, normal range of motion, non- tender, no calf tenderness, long fingers Neurologic: alert, oriented x3, responsive, motor strength/tone normal, sensory intact, speech normal Impression: Right spontaneous pneumothorax Plan: S/p Right chest tube O2 PRN Pain meds EKG: Rate: normal Rhythm: NSR ST Segments: no acute changes Chest X-Ray: Large right pneumothorax, resolved with R CT Subjective ROS Limited/Unobtainable: No Allergies: Coded Allergies: No Known Allergies (Unverified , 04/27/19) Objective Last 24 Hour Vital Signs Date Time Temp Pulse Resp B/P (MAP) Pulse Ox O2 Delivery O2 Flow Rate FiO2 04/30/19 12:00 98.4 72 16 112/65 (81) 99 04/30/19 10:43 79 18 98 Room Air 21 04/30/19 08:00 97.7 82 16 117/75 (89) 98 04/30/19 04:00 97.6 55 16 106/70 (82) 04/29/19 23:46 97.8 74 18 129/85 (100) 04/29/19 21:10 Room Air Room Air Room Air 04/29/19 20:03 78 20 98 Room Air 21 04/29/19 20:00 97.8 77 18 127/86 (100) Intake and Output 04/29/19 04/30/19 19:00 07:00 Intake Total 1100 ml Output Total 600 ml 500 ml Balance 500 ml -500 ml Intake Oral 1100 ml Output Urine Total 600 ml Stool Total 500 ml Chest Tube Drainage Total 0 ml 0 ml # Voids 1 # Bowel Movements 1 Microbiology Date/Time Source Procedure Growth Status 04/27/19 21:15 Nasal Nares MRSA Culture - Final NO METHICILLIN RESISTANT STAPH AUREUS... Complete 04/27/19 21:15 Rectum - Final NO CARBAPENEM-RESISTANT ENTEROBACTERI... Complete 04/27/19 21:15 Rectum VRE Culture - Final NO VANCOMYCIN RESISTANT ENTEROCOCCUS ... Complete Current Medications Medications (Trade) Dose Ordered Sig/Magda Route PRN Reason Start Time Stop Time Status Last Admin Dose Admin Acetaminophen (Tylenol) 650 mg Q4H PRN ORAL Mild Pain/Temp > 100.5 04/28/19 18:15 05/27/19 22:14 Acetaminophen/ Hydrocodone Bitart ([place] 5/325) 1 tab Q6H PRN ORAL For Moderate Pain 04/28/19 17:30 05/04/19 17:29 04/29/19 23:53 Albuterol/ Ipratropium (Albuterol/ Ipratropium) 3 ml Q6H PRN HHN Shortness of Breath 04/28/19 18:00 05/03/19 17:59 Hydromorphone HCl (Dilaudid) 0.5 mg Q3H PRN IVP For Severe Pain 04/28/19 18:00 05/05/19 17:59 Ondansetron HCl (Zofran) 4 mg Q6H PRN IVP Nausea & Vomiting 04/28/19 17:30 05/27/19 17:29 Merrick Hernandez MD Apr 30, 2019 16:19
--- NOTE | 2019-04-30 16:25 | Cardiology Report ---
APPROVED REPORT EKG Measurement Heart [id number] Normal sinus rhythm Normal ECG
--- NOTE | 2019-04-30 17:04 | NUR ---
NURSE NOTES: Confirmed with Dr. Boateng that Chest Tube Drainage System will be off low continuous suction. (Dr. Boateng removed suction tubing during his rounds this afternoon).
--- NOTE | 2019-04-30 19:37 | NUR ---
HAND-OFF: Report given to Nadeem SHUKLA. No chest tube output. Endorsed new orders from Dr. Boateng regarding keeping pleuravac off suction and activity orders for okay to ambulate with pleuravac system connected to the lowest part of an IV pole.
--- NOTE | 2019-04-30 19:40 | NUR ---
NURSE NOTES: Receive a report from VAZQUEZ Cabello. Round is done. Pt is sitting in bed, awake and alert. Right upper lateral site chest tube inserted state off suctioning. Keep tight gauze dressing around chest tube site. No SOB/ coughing/ dyspnea noted. Made aware to call nurse for any change of conditions and symptoms. Keep Chest Tube System lowest position and tape to IV pole to ambulate. Walk to bathroom without dizziness, mild headache, or N/V sense. Will continue to monitor closely.
[2019-04-30 20:00] VITALS: BP 117/79
--- NOTE | 2019-04-30 21:06 | General Progress Note ---
Assessment/Plan Problem List: (1) Pneumothorax on right ICD Codes: J93.9 - Pneumothorax, unspecified SNOMED: [id number] Status: progressing Assessment/Plan: pneumothorax s/p pigtial on the right no wheezing not hypoxic Subjective ROS Limited/Unobtainable: Yes Allergies: Coded Allergies: No Known Allergies (Unverified , 04/27/19) Objective Last 24 Hour Vital Signs Date Time Temp Pulse Resp B/P (MAP) Pulse Ox O2 Delivery O2 Flow Rate FiO2 04/30/19 20:00 98.9 90 20 117/79 (92) 100 04/30/19 19:52 74 18 97 Room Air 21 04/30/19 16:00 98.3 71 20 105/61 (76) 100 04/30/19 12:00 98.4 72 16 112/65 (81) 99 04/30/19 10:43 79 18 98 Room Air 21 04/30/19 09:00 Room Air Room Air Room Air 04/30/19 08:00 97.7 82 16 117/75 (89) 98 04/30/19 04:00 97.6 55 16 106/70 (82) 04/29/19 23:46 97.8 74 18 129/85 (100) 04/29/19 21:10 Room Air Room Air Room Air Intake and Output 04/29/19 04/30/19 19:00 07:00 Intake Total 1100 ml Output Total 600 ml 500 ml Balance 500 ml -500 ml Intake Oral 1100 ml Output Urine Total 600 ml Stool Total 500 ml Chest Tube Drainage Total 0 ml 0 ml # Voids 1 # Bowel Movements 2 Height (Feet): 5 Height (Inches): 10.00 Weight (Pounds): 144 Neck: supple Cardiovascular: normal rate Respiratory/Chest: lungs clear Abdomen: soft Leanne Martinez MD Apr 30, 2019 21:06
--- NOTE | 2019-04-30 22:00 | NUR ---
NURSE NOTES: Pt ambulated the unit without distress. No SOB noted and sitting in bed. Noted dull pain on right side chest area on his back 11/08. Provided prn Tylenol 325mg 1t po and relieve pain. Leave call light and urinal within reach. Right upper chest tube with gauze dressing intact in water seal. Will continue to monitor.
[2019-05-01] VITALS: BP 112/66
[2019-05-01 04:30] VITALS: BP 104/73
--- NOTE | 2019-05-01 07:13 | NUR ---
NURSE NOTES: Report received from Nadeem SHUKLA, rounds made. Patient sleeping in left lateral position in bed. No distress on RA. Right lateral chest tube in place, pleuravac in place on floor at bedside, dressing CDI. Call light in reach, bed in lowest position, will continue to monitor. Addendum: 05/01/19 at 2005 by Destiney Sanz RN Bilateral SCDs off.
[2019-05-01 07:26] LABS: ANION GAP 11 mmol/L (5-15); BASOPHILS % (AUTO) 0.7 % (0.0-2.0); BLOOD UREA NITROGEN 16 mg/dL (7-18); CALCIUM 9.7 MG/DL (8.5-10.1); CARBON DIOXIDE 27 MMOL/L (21-32); CHLORIDE 104 MMOL/L (98-107); CREATININE 1.1 MG/DL (0.55-1.30); EOSINOPHILS % (AUTO) 6.4 % (0.0-3.0); HEMATOCRIT 48.1 % (42.0-52.0); HEMOGLOBIN 16.2 G/DL (14.2-18.0); LYMPHOCYTES % (AUTO) 23.4 % (20.0-45.0); MEAN CORPUSCULAR VOLUME 85 FL (80-99); MONOCYTES % (AUTO) 5.8 % (1.0-10.0); NEUTROPHILS % (AUTO) 63.7 % (45.0-75.0); PLATELET COUNT 348 K/UL (150-450); POTASSIUM 3.9 MMOL/L (3.5-5.1); RED BLOOD COUNT 5.69 M/UL (4.70-6.10); RED CELL DISTRIBUTION WIDTH 12.3 % (11.6-14.8); SODIUM 142 MMOL/L (136-145); WHITE BLOOD COUNT 8.7 K/UL (4.8-10.8)
--- NOTE | 2019-05-01 07:30 | NUR ---
HAND-OFF: Report given to VAZQUEZ Cabello. Round is done. Pt is asleep.
[2019-05-01 08:00] VITALS: BP 128/83
--- NOTE | 2019-05-01 08:24 | Diagnostic Imaging Report ---
EXAM: XR Chest, 1 View CLINICAL HISTORY: Follow-up chest x-ray TECHNIQUE: Frontal view of the chest. COMPARISON: Chest x-ray dated 04/30/19 FINDINGS: Lungs: Unremarkable. The lungs appear clear. No focal consolidation. Pleural space: Unremarkable. The costophrenic angles are sharp. No visible pneumothorax. Heart: Unremarkable. No cardiomegaly. Mediastinum: Unremarkable. Bones/joints: Unremarkable. Tubes, lines and devices: Stable positioning of the right-sided chest tube with the tip coiled in the right mid thorax. IMPRESSION: Stable positioning of the right-sided chest tube with the tip coiled in the right mid thorax. No residual pneumothorax identified.
[2019-05-01 12:00] VITALS: BP 123/85
[2019-05-01 16:00] VITALS: BP 113/80
--- NOTE | 2019-05-01 17:30 | NUR ---
NURSE NOTES: Chest tube removed today at bedside by Dr. Boateng. New right axillary dressing applied, remains CDI. Patient alert, oriented x4, denies pain/SOB/cough. Skin warm. Will continue to monitor.
--- NOTE | 2019-05-01 17:38 | Pulmonology Progress Note ---
Assessment/Plan Assessment/Plan Pulmonary Progress Note HPI Patient is a 28-year-old male with no significant past medical history here complaining of sudden onset of chest pain that started yesterday while smoking a large joint, also c/o shortness of breath. Noted to have large R PTX, sp chest tube, Denies recent URI symptoms, fever and chills, cough. Denies pleuritic chest pain, swelling in legs, having a sedentary lifestyle, recent travel or operation. No previous PTX. NotSOB, still had CT - no air leak, CXR stable, no PTX Allergies: No Known Allergies Past Medical History: No Stated History All Other Systems: negative except mentioned in HPI Physical Exam Vital Signs Noted General Appearance: alert, GCS 15, non-toxic, no distress Head: normocephalic, atraumatic Eyes: bilateral eye normal inspection, bilateral eye PERRL ENT: hearing grossly normal, normal pharynx, no angioedema, normal voice Neck: full range of motion, supple/symm/no masses, No LN Respiratory: chest non-tender, no retraction, no accessory muscle use, no wheezing, speaking full sentences, right chest tube, palpation of chest normal Cardiovascular: regular rate, rhythm, Normal HS, no edema, no murmur Gastrointestinal: normal bowel sounds, non tender, soft, non-distended, no guarding, no rebound Genitourinary: normal inspection, no CVA tenderness Musculoskeletal: back normal, gait/station normal, normal range of motion, non- tender, no calf tenderness, long fingers Neurologic: alert, oriented x3, responsive, motor strength/tone normal, sensory intact, speech normal Impression: Right spontaneous pneumothorax Plan: S/p Right chest tube - for DC per Surgery reccs O2 PRN Pain meds EKG: Rate: normal Rhythm: NSR ST Segments: no acute changes Chest X-Ray: Large right pneumothorax, resolved with R CT Subjective Allergies: Coded Allergies: No Known Allergies (Unverified , 04/27/19) Objective Last 24 Hour Vital Signs Date Time Temp Pulse Resp B/P (MAP) Pulse Ox O2 Delivery O2 Flow Rate FiO2 05/01/19 13:49 78 20 98 Room Air 21 05/01/19 12:00 98.1 98 16 123/85 (98) 100 05/01/19 08:00 98.6 87 16 128/83 (98) 96 05/01/19 04:30 97.8 67 18 104/73 (83) 98 05/01/19 00:00 97.5 70 18 112/66 (81) 95 04/30/19 21:00 Room Air Room Air Room Air 04/30/19 20:00 98.9 90 20 117/79 (92) 100 04/30/19 19:52 74 18 97 Room Air 21 Intake and Output 04/30/19 05/01/19 19:00 07:00 Intake Total 100 ml Output Total 700 ml Balance -700 ml 100 ml Intake Oral 100 ml Output Urine Total 700 ml # Voids 2 2 # Bowel Movements 2 Laboratory Tests 05/01/19 05:10: White Blood Count 8.7, Red Blood Count 5.69, Hemoglobin 16.2, Hematocrit 48.1, Mean Corpuscular Volume 85, Mean Corpuscular Hemoglobin 28.5, Mean Corpuscular Hemoglobin Concent 33.7, Red Cell Distribution Width 12.3, Platelet Count 348, Mean Platelet Volume 5.8L, Neutrophils (%) (Auto) 63.7, Lymphocytes (%) (Auto) 23.4, Monocytes (%) (Auto) 5.8, Eosinophils (%) (Auto) 6.4H, Basophils (%) (Auto ) 0.7, Sodium Level 142, Potassium Level 3.9, Chloride Level 104, Carbon Dioxide Level 27, Anion Gap 11, Blood Urea Nitrogen 16, Creatinine 1.1, Estimat Glomerular Filtration Rate > 60, Glucose Level 74, Calcium Level 9.7 Current Medications Medications (Trade) Dose Ordered Sig/Magda Route PRN Reason Start Time Stop Time Status Last Admin Dose Admin Acetaminophen (Tylenol) 650 mg Q4H PRN ORAL Mild Pain/Temp > 100.5 04/28/19 18:15 05/27/19 22:14 04/30/19 21:07 Acetaminophen/ Hydrocodone Bitart ([place] 5/325) 1 tab Q6H PRN ORAL For Moderate Pain 04/28/19 17:30 05/04/19 17:29 04/29/19 23:53 Albuterol/ Ipratropium (Albuterol/ Ipratropium) 3 ml Q6H PRN HHN Shortness of Breath 04/28/19 18:00 05/03/19 17:59 Hydromorphone HCl (Dilaudid) 0.5 mg Q3H PRN IVP For Severe Pain 04/28/19 18:00 05/05/19 17:59 Ondansetron HCl (Zofran) 4 mg Q6H PRN IVP Nausea & Vomiting 04/28/19 17:30 05/27/19 17:29 Merrick Hernandez MD May 01, 2019 17:38
--- NOTE | 2019-05-01 18:09 | Surgery Progress Note ---
Surgery Progress Note Subjective Procedure Performed right tube thoracostomy Additional Comments cxr okay doing well chest tube removed at bedside. Objective Last 24 Hour Vital Signs Date Time Temp Pulse Resp B/P (MAP) Pulse Ox O2 Delivery O2 Flow Rate FiO2 05/01/19 13:49 78 20 98 Room Air 21 05/01/19 12:00 98.1 98 16 123/85 (98) 100 05/01/19 08:00 98.6 87 16 128/83 (98) 96 05/01/19 04:30 97.8 67 18 104/73 (83) 98 05/01/19 00:00 97.5 70 18 112/66 (81) 95 04/30/19 21:00 Room Air Room Air Room Air 04/30/19 20:00 98.9 90 20 117/79 (92) 100 04/30/19 19:52 74 18 97 Room Air 21 I&O Intake and Output 04/30/19 05/01/19 19:00 07:00 Intake Total 100 ml Output Total 700 ml Balance -700 ml 100 ml Intake Oral 100 ml Output Urine Total 700 ml # Voids 2 2 # Bowel Movements 2 Dressing: dry Wound: clean Drains: none Cardiovascular: RSR Respiratory: clear Abdomen: soft, flat, non-tender, present bowel sounds Extremities: no edema, no tenderness, no cyanosis Laboratory Tests Test 05/01/19 05:10 White Blood Count 8.7 K/UL (4.8-10.8) Red Blood Count 5.69 M/UL (4.70-6.10) Hemoglobin 16.2 G/DL (14.2-18.0) Hematocrit 48.1 % (42.0-52.0) Mean Corpuscular Volume 85 FL (80-99) Mean Corpuscular Hemoglobin 28.5 PG (27.0-31.0) Mean Corpuscular Hemoglobin Concent 33.7 G/DL (32.0-36.0) Red Cell Distribution Width 12.3 % (11.6-14.8) Platelet Count 348 K/UL (150-450) Mean Platelet Volume 5.8 FL (6.5-10.1) L Neutrophils (%) (Auto) 63.7 % (45.0-75.0) Lymphocytes (%) (Auto) 23.4 % (20.0-45.0) Monocytes (%) (Auto) 5.8 % (1.0-10.0) Eosinophils (%) (Auto) 6.4 % (0.0-3.0) H Basophils (%) (Auto) 0.7 % (0.0-2.0) Sodium Level 142 MMOL/L (136-145) Potassium Level 3.9 MMOL/L (3.5-5.1) Chloride Level 104 MMOL/L (98-107) Carbon Dioxide Level 27 MMOL/L (21-32) Anion Gap 11 mmol/L (5-15) Blood Urea Nitrogen 16 mg/dL (7-18) Creatinine 1.1 MG/DL (0.55-1.30) Estimat Glomerular Filtration Rate > 60 mL/min (>60) Glucose Level 74 MG/DL (74-106) Calcium Level 9.7 MG/DL (8.5-10.1) Plan Problems: (1) Pneumothorax on right Assessment & Plan: 28M with spontaneous right pneumothorax. afebrile, HD stable, sob, right chest pressure. CXR noted. labs okay Right tube thoracostomy placed in ED. see note okay for diet chest tube removed AM CXR thank you Asif Boateng May 01, 2019 18:09
--- NOTE | 2019-05-01 19:40 | NUR ---
HAND-OFF: Report given to Cammy SHUKLA.
[2019-05-01 20:00] VITALS: BP 118/68
--- NOTE | 2019-05-01 20:10 | NUR ---
NURSE NOTES: Patient in bed, AOx4. IV in place. No complaints of pain or SOB. No s/s respiratory distress noted. Patient ambulatory. Dressing on right lateral side in place, dry and intact. Bed in lowest position, call light within reach. Will continue to monitor.
--- NOTE | 2019-05-01 22:03 | General Progress Note ---
Assessment/Plan Problem List: (1) Pneumothorax on right ICD Codes: J93.9 - Pneumothorax, unspecified SNOMED: 416992883 Status: progressing Assessment/Plan: pneumothorax s/p pigtial no sob dc planning afebrile Subjective ROS Limited/Unobtainable: Yes Allergies: Coded Allergies: No Known Allergies (Unverified , 04/27/19) Objective Last 24 Hour Vital Signs Date Time Temp Pulse Resp B/P (MAP) Pulse Ox O2 Delivery O2 Flow Rate FiO2 05/01/19 20:00 97.6 85 20 118/68 (85) 99 05/01/19 16:00 98.2 93 16 113/80 (91) 100 05/01/19 13:49 78 20 98 Room Air 21 05/01/19 12:00 98.1 98 16 123/85 (98) 100 05/01/19 09:00 Room Air Room Air Room Air 05/01/19 08:00 98.6 87 16 128/83 (98) 96 05/01/19 04:30 97.8 67 18 104/73 (83) 98 05/01/19 00:00 97.5 70 18 112/66 (81) 95 Intake and Output 04/30/19 05/01/19 19:00 07:00 Intake Total 100 ml Output Total 700 ml Balance -700 ml 100 ml Intake Oral 100 ml Output Urine Total 700 ml # Voids 2 2 # Bowel Movements 2 Laboratory Tests 05/01/19 05:10: White Blood Count 8.7, Red Blood Count 5.69, Hemoglobin 16.2, Hematocrit 48.1, Mean Corpuscular Volume 85, Mean Corpuscular Hemoglobin 28.5, Mean Corpuscular Hemoglobin Concent 33.7, Red Cell Distribution Width 12.3, Platelet Count 348, Mean Platelet Volume 5.8L, Neutrophils (%) (Auto) 63.7, Lymphocytes (%) (Auto) 23.4, Monocytes (%) (Auto) 5.8, Eosinophils (%) (Auto) 6.4H, Basophils (%) (Auto ) 0.7, Sodium Level 142, Potassium Level 3.9, Chloride Level 104, Carbon Dioxide Level 27, Anion Gap 11, Blood Urea Nitrogen 16, Creatinine 1.1, Estimat Glomerular Filtration Rate > 60, Glucose Level 74, Calcium Level 9.7 Height (Feet): 5 Height (Inches): 10.00 Weight (Pounds): 144 Cardiovascular: regular rhythm Respiratory/Chest: lungs clear Leanne Martinez MD May 01, 2019 22:03
[2019-05-02 04:38] VITALS: BP 96/63
--- NOTE | 2019-05-02 05:00 | NUR ---
NURSE NOTES: Patient asleep, no distress noted.
[2019-05-02 06:56] LABS: BASOPHILS % (AUTO) 0.5 % (0.0-2.0); EOSINOPHILS % (AUTO) 5.6 % (0.0-3.0); HEMATOCRIT 47.7 % (42.0-52.0); HEMOGLOBIN 15.9 G/DL (14.2-18.0); LYMPHOCYTES % (AUTO) 26.5 % (20.0-45.0); MEAN CORPUSCULAR VOLUME 85 FL (80-99); MONOCYTES % (AUTO) 4.4 % (1.0-10.0); PLATELET COUNT 349 K/UL (150-450); RED BLOOD COUNT 5.59 M/UL (4.70-6.10); RED CELL DISTRIBUTION WIDTH 12.1 % (11.6-14.8); WHITE BLOOD COUNT 8.8 K/UL (4.8-10.8)
--- NOTE | 2019-05-02 07:18 | NUR ---
HAND-OFF: Report given to STACEY MCRAE RN/ANTON CARRILLO RN.
--- NOTE | 2019-05-02 07:20 | NUR ---
NURSE NOTES: Patient lying in bed sleeping. No complain of pain or distress at this time. Skin intact and dry. IV dressing intact and dry. Bed lowest position. Call light within reach. Will continue to monitor.
[2019-05-02 07:23] LABS: ANION GAP 10 mmol/L (5-15); BLOOD UREA NITROGEN 20 mg/dL (7-18); CALCIUM 9.7 MG/DL (8.5-10.1); CARBON DIOXIDE 26 MMOL/L (21-32); CHLORIDE 106 MMOL/L (98-107); POTASSIUM 4.1 MMOL/L (3.5-5.1); SODIUM 142 MMOL/L (136-145)
[2019-05-02 08:00] VITALS: BP 94/61
--- NOTE | 2019-05-02 08:58 | Diagnostic Imaging Report ---
EXAM: XR Chest, 1 View CLINICAL HISTORY: F/U TECHNIQUE: Frontal view of the chest. COMPARISON: Chest x-rays dated 05/01/19 FINDINGS: Lungs: Unremarkable. The lungs appear clear. No focal consolidation. Pleural space: Unremarkable. The costophrenic angles are sharp. No visible pneumothorax. Heart: Unremarkable. No cardiomegaly. Mediastinum: Unremarkable. Bones/joints: Unremarkable. Tubes, lines and devices: Interval removal of the right chest tube. IMPRESSION: Interval removal of the right chest tube. No pneumothorax identified. Lungs appear clear. No effusions.
--- NOTE | 2019-05-02 11:10 | NUR ---
NURSE NOTES: Seen and evaluated by and new order received. Order read back and carried out.
--- NOTE | 2019-05-02 11:33 | NUR ---
NURSE NOTES: Spoke to regarding discharge and new order received. Order read back and carried out.
--- NOTE | 2019-05-02 11:42 | Surgery Progress Note ---
Surgery Progress Note Subjective Procedure Performed right tube thoracostomy Additional Comments Patient seen and examined at bedside. Doing very well. No complaints. Chest tube removed yesterday bedside and since has been doing well. Morning x-ray shows that the lung is completely expanded with no residual pneumothorax since tube is been removed. Objective Last 24 Hour Vital Signs Date Time Temp Pulse Resp B/P (MAP) Pulse Ox O2 Delivery O2 Flow Rate FiO2 05/02/19 09:00 Room Air Room Air Room Air 05/02/19 08:00 97.7 78 20 94/61 (72) 100 05/02/19 04:38 98.6 68 18 96/63 (74) 99 05/01/19 22:03 Room Air Room Air Room Air 05/01/19 20:00 97.6 85 20 118/68 (85) 99 05/01/19 16:00 98.2 93 16 113/80 (91) 100 05/01/19 13:49 78 20 98 Room Air 21 05/01/19 12:00 98.1 98 16 123/85 (98) 100 I&O Intake and Output 05/01/19 05/02/19 19:00 07:00 Intake Total 800 ml 240 ml Output Total 650 ml Balance 150 ml 240 ml Intake Oral 800 ml 240 ml Output Urine Total 650 ml # Voids 3 2 Dressing: dry Wound: clean Drains: none Cardiovascular: RSR Respiratory: clear Abdomen: soft, non-tender, present bowel sounds Extremities: no edema, no tenderness, no cyanosis Laboratory Tests Test 05/02/19 05:10 White Blood Count 8.8 K/UL (4.8-10.8) Red Blood Count 5.59 M/UL (4.70-6.10) Hemoglobin 15.9 G/DL (14.2-18.0) Hematocrit 47.7 % (42.0-52.0) Mean Corpuscular Volume 85 FL (80-99) Mean Corpuscular Hemoglobin 28.4 PG (27.0-31.0) Mean Corpuscular Hemoglobin Concent 33.3 G/DL (32.0-36.0) Red Cell Distribution Width 12.1 % (11.6-14.8) Platelet Count 349 K/UL (150-450) Mean Platelet Volume 5.7 FL (6.5-10.1) L Neutrophils (%) (Auto) 63.0 % (45.0-75.0) Lymphocytes (%) (Auto) 26.5 % (20.0-45.0) Monocytes (%) (Auto) 4.4 % (1.0-10.0) Eosinophils (%) (Auto) 5.6 % (0.0-3.0) H Basophils (%) (Auto) 0.5 % (0.0-2.0) Sodium Level 142 MMOL/L (136-145) Potassium Level 4.1 MMOL/L (3.5-5.1) Chloride Level 106 MMOL/L (98-107) Carbon Dioxide Level 26 MMOL/L (21-32) Anion Gap 10 mmol/L (5-15) Blood Urea Nitrogen 20 mg/dL (7-18) H Creatinine 1.0 MG/DL (0.55-1.30) Estimat Glomerular Filtration Rate > 60 mL/min (>60) Glucose Level 90 MG/DL (74-106) Calcium Level 9.7 MG/DL (8.5-10.1) Plan Problems: (1) Pneumothorax on right Assessment & Plan: 28M with spontaneous right pneumothorax. afebrile, HD stable, sob, right chest pressure. CXR noted. labs okay Right tube thoracostomy placed in ED. see note okay for diet chest tube removed DC home today from surgical standpoint. Diet as tolerated. Activity as tolerated. Patient follow-up with his primary care physician for remainder of care. Recommend outpatient thoracic surgery evaluation and considerations for CT chest as an outpatient. AM CXR thank you Asif Boateng May 02, 2019 11:42
--- NOTE | 2019-05-02 11:43 | Discharge Instructions ---
Discharge Instructions Discharge Instructions Follow up with: PCP in 1-2 weeks. Call MD/Return to Hospital if: worsening condition, SOB Diet: regular Resume Normal Activity?: Yes Activity: resume normal activities For Surgical Patients Dressing Care: other - remove dressings tomorrow then begin showering. Contact your physician for: other - worsening condition For Congestive Heart Failure Reminder Report to your physician any weight gain of 5 pounds or more in one week. Asif Boateng May 02, 2019 11:43
[2019-05-02 12:00] VITALS: BP 120/85
--- NOTE | 2019-05-02 12:25 | NUR ---
NURSE NOTES: Spoke to regarding discharge and new order received. Order read back and carried out.
--- NOTE | 2019-05-02 13:12 | NUR ---
NURSE NOTES: patient is being prepared for discharge, taken off IV access, no bleeding noted after pressure on the site. No complaint of pain or discomfort, in stable condition and VS. Pt signed off belongings list and leaves with all his belongings.
--- NOTE | 2019-05-02 14:00 | NUR ---
NURSE NOTES: Given pt discharge packet with educational pamphlet on pt's condition and health care specialist follow up information. No medication reconciliation done as no home meds and no dr's order for new medication. Educated pt on removing right chest dressing tomorrow, and shower washing area with soap and water. Then keep the area dry and clean, CONTENT MANAGER as per dr. Boateng instructions. Pt initially wanted to ambulate to his friend's house to retrieve his car, then drive to his apartment. Nurse told patient it might be safer going by taxi and hospital will provide taxi voucher. Pt changed his mind, and asked to have taxi drive him to his apartment complex. Pt forgot actual address of the complex, but told it's in the vicinity of a business at [address] [facility] [id number]. Notified nurse medical operations supervisor Jane. Moreover, pt requested to be discharge at 1700. Notified charge nurse Prabha.
--- NOTE | 2019-05-02 16:40 | NUR ---
NURSE NOTES: Patient discharged in stable condition by Matt. Discharge instruction given to patient and verbalized understanding. Belonging given to patient. IV and ID removed. Instructed to follow up with MD and verbalized understanding. Patient ambulated out with all personal belongings with steady gait.
--- NOTE | 2019-05-02 17:30 | Pulmonology Progress Note ---
Assessment/Plan Assessment/Plan Pulmonary Progress Note HPI Patient is a 28-year-old male with no significant past medical history here complaining of sudden onset of chest pain that started yesterday while smoking a large joint, also c/o shortness of breath. Noted to have large R PTX, sp chest tube, Denies recent URI symptoms, fever and chills, cough. Denies pleuritic chest pain, swelling in legs, having a sedentary lifestyle, recent travel or operation. No previous PTX. Not SOB, CT DC , CXR stable, no PTX Allergies: No Known Allergies Past Medical History: No Stated History All Other Systems: negative except mentioned in HPI Physical Exam Vital Signs Noted General Appearance: alert, GCS 15, non-toxic, no distress Head: normocephalic, atraumatic Eyes: bilateral eye normal inspection, bilateral eye PERRL ENT: hearing grossly normal, normal pharynx, no angioedema, normal voice Neck: full range of motion, supple/symm/no masses, No LN Respiratory: chest non-tender, no retraction, no accessory muscle use, no wheezing, speaking full sentences Cardiovascular: regular rate, rhythm, Normal HS, no edema, no murmur Gastrointestinal: normal bowel sounds, non tender, soft, non-distended, no guarding, no rebound Genitourinary: normal inspection, no CVA tenderness Musculoskeletal: back normal, gait/station normal, normal range of motion, non- tender, no calf tenderness, long fingers Neurologic: alert, oriented x3, responsive, motor strength/tone normal, sensory intact, speech normal Impression: Right spontaneous pneumothorax Plan: FU with PMD, patient informed that he should be screened for Marfans using PMD Pain meds EKG: Rate: normal Rhythm: NSR ST Segments: no acute changes Seen earlier Subjective ROS Limited/Unobtainable: No Allergies: Coded Allergies: No Known Allergies (Unverified , 04/27/19) Objective Last 24 Hour Vital Signs Date Time Temp Pulse Resp B/P (MAP) Pulse Ox O2 Delivery O2 Flow Rate FiO2 05/02/19 12:00 97.4 92 18 120/85 (97) 99 05/02/19 09:00 Room Air Room Air Room Air 05/02/19 08:00 97.7 78 20 94/61 (72) 100 05/02/19 04:38 98.6 68 18 96/63 (74) 99 8/31/19 22:03 Room Air Room Air Room Air 05/01/19 20:00 97.6 85 20 118/68 (85) 99 Intake and Output 05/01/19 05/02/19 18:59 06:59 Intake Total 800 ml 240 ml Output Total 650 ml Balance 150 ml 240 ml Intake Oral 800 ml 240 ml Output Urine Total 650 ml # Voids 3 2 Laboratory Tests 05/02/19 05:10: White Blood Count 8.8, Red Blood Count 5.59, Hemoglobin 15.9, Hematocrit 47.7, Mean Corpuscular Volume 85, Mean Corpuscular Hemoglobin 28.4, Mean Corpuscular Hemoglobin Concent 33.3, Red Cell Distribution Width 12.1, Platelet Count 349, Mean Platelet Volume 5.7L, Neutrophils (%) (Auto) 63.0, Lymphocytes (%) (Auto) 26.5, Monocytes (%) (Auto) 4.4, Eosinophils (%) (Auto) 5.6H, Basophils (%) (Auto ) 0.5, Sodium Level 142, Potassium Level 4.1, Chloride Level 106, Carbon Dioxide Level 26, Anion Gap 10, Blood Urea Nitrogen 20H, Creatinine 1.0, Estimat Glomerular Filtration Rate > 60, Glucose Level 90, Calcium Level 9.7 Merrick Hernandez MD May 02, 2019 17:29
--- NOTE | 2019-05-02 20:55 | Discharge Summary ---
Discharge Summary Discharge Summary _ DATE OF ADMISSION: 04/27/2019 DATE OF DISCHARGE: 2018 DISCHARGED BY: Dr. Boateng REASON FOR ADMISSION: 28 years old male without significant past medical history, presented to emergency department with complaint of right chest discomfort and pressure with associated shortness of breath with acute onset earlier that afternoon. Patient reported history of smoking. Next No fevers , no chills. No wheezing. No hemoptysis. No cough. No nausea, no vomiting. Patient denied fall injury,, or heavy lifting. Laboratory work-up revealed no leukocytosis, stable hemoglobin and hematocrit. Stable electrolytes, renal parameters, glucose. Stable vital signs. Pulse oximetry was stable on room air. Chest x-ray demonstrated massive right pneumothorax, no definite evidence of tension. EKG revealed normal sinus rhythm, no acute ischemic changes. Surgeon was consulted, who evaluated patient in emergency department and subsequently placed right thoracostomy tube, attached to suction. Patient was admitted for further management CONSULTANTS: pulmonary Dr. Hernandez surgery Dr. Boateng [facility] COURSE: Patient admitted. Chest tube was initially attached to suction. Follow-up chest x-ray after insertion of chest tube revealed resolution of pneumothorax and reexpansion of the right lung. Pain management was addressed. General surgeon and director digital closely followed. Supplemental oxygen was on board as needed to keep pulse oximetry above 92%. Bronchodilator therapy was on board as needed. Chest x-ray on 04/29 demonstrated right chest tube in place. No pneumothorax. Pulse oximetry remained stable on room air. No air leak from chest tube. Laboratory work-up remained stable. Chest tube from suction changed to water seal. Chest tube was placed to water seal subsequently on 04/30. Chest x-ray remained stable, no pneumothorax. Cchest tube was removed on 05/01. Chest x-ray in the morning on 05/02 , after chest tube removal , revealed no pneumothorax, lungs appeared clear, no effusion. Surgeon cleared patient for discharge with activity as tolerated. Surgeon recommended to follow-up with his primary care physician for remainder of care. Patient was advised to have outpatient thoracic surgery evaluation and consider CT chest as outpatient. Patient subsequently was stable for discharge home. FINAL DIAGNOSES: Right spontaneous pneumothorax-resolved s/p Right tube thoracostomy 04/27 DISCHARGE MEDICATIONS: No meds DISCHARGE INSTRUCTIONS: Patient was discharged home. Follow-up with primary care provider within 1 week. Patient was recommended to have outpatient thoracic surgery evaluation and consider CT chest. I have been assigned to dictate discharge summary for this account. I was not involved in the patient's management. Seble Rangel NP May 02, 2019 20:55
--- NOTE | 2019-05-04 14:25 | NUR ---
*-* INSURANCE *--* discharge summary has been faxed to [facility]: TAT...............[facility] P- [phone] F- [phone]....REVIEW/CLINICAL
--- NOTE | 2019-05-05 11:42 | NUR ---
*-* INSURANCE *--* ALL CLINICALS HAVE BEEN FAXED TO: [facility]: TAT...............[facility] P- [phone] F- [phone]....REVIEW/CLINICAL
== END 2019-05-02 16:47 | disposition home or self-care (01) | DRG 143 ==
LOC: EMR 16:50 → EDBEDREQ 18:23 → 2E 18:40 → EDBEDREQSVC 20:22 → EDBEDREQ 20:22 → EDBEDREQTM 20:22 → EDBEDREQ 20:48 → 3E 04-28 17:35
PROC: 0W9930Z Drainage of Right Pleural Cavity with Drainage Device, Percutaneous Approach (ICD-10-PCS; principal; 2019-04-27)
DX: J93.11 Primary spontaneous pneumothorax (principal)
CPT/HCPCS: 36415; 71045; 80048; 80053; 80307; 81001; 85025; 85610; 85730; 86850; 86900; 86901; 87081; 93005; 94640; 94664; 96361; 96374; 96375; 99285; J2405

== ENCOUNTER 2020-08-07 15:12 | Emergency (ER) | payer OTHER ==
[~2020-08-07] VITALS: Ht 180.3 cm; Wt 66.7 kg
--- NOTE | 2020-08-07 15:34 | Emergency Room Report ---
History of Present Illness General Chief Complaint: General Complaint Source: Patient Present Illness HPI 29-year-old male with no significant past with history of several months of having head lice without any treatment. Patient has long hair and reports that does not want to cut his hair. Denies any pain, fever chills, no other associate symptoms. Reports that he is able to see the eggs in his hair. De nies any hair loss. 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 Patient History Past Medical History: see triage record Past Surgical History: none Pertinent Family History: none Immunizations: UTD Reviewed Nursing Documentation: PMH: Agreed; PSxH: Agreed Nursing Documentation-PMH Past Medical History: No Stated History Review of Systems All Other Systems: negative except mentioned in HPI Physical Exam Vital Signs Date Time Temp Pulse Resp B/P (MAP) Pulse Ox O2 Delivery O2 Flow Rate FiO2 08/07/20 15:23 98.4 73 18 111/61 (78) 98 Room Air Sp02 EP Interpretation: reviewed, normal General Appearance: no apparent distress, alert, GCS 15, non-toxic Head: normocephalic, atraumatic Eyes: bilateral eye normal inspection, bilateral eye PERRL ENT: hearing grossly normal, normal pharynx, no angioedema, normal voice Neck: full range of motion, supple/symm/no masses Respiratory: chest non-tender, lungs clear, normal breath sounds, speaking full sentences Cardiovascular #1: regular rate, rhythm, no edema Gastrointestinal: soft Rectal: deferred Musculoskeletal: back normal Neurologic: alert, motor strength/tone normal, oriented x3, sensory intact, responsive, speech normal Psychiatric: judgement/insight normal, memory normal, mood/affect normal, no suicidal/homicidal ideation Skin: no rash Lymphatic: no adenopathy Medical Decision Making PA Attestation All my diagnosis and treatment plans were reviewed ad discussed with my sup ervising physician Dr. Chen Diagnostic Impression: Primary Impression: Head lice ER Course 29-year-old male with no significant past with history of several months of having head lice without any treatment. Patient has long hair and reports that does not want to cut his hair. Denies any pain, fever chills, no other associate symptoms. Reports that he is able to see the eggs in his hair. Denies any hair loss. Complains of pruritus in hair Ddx considered but are not limited to: Eczema, scabies, lice, Vital signs: are WNL, pt. is afebrile H&PE are most consistent with: Head lice ORDERS: Permethrin ED INTERVENTIONS: None required at this time. DISCHARGE: At this time pt. is stable for d/c to home. Will provide printed patient care instructions, and any necessary prescriptions. Care plan and follow up instructions have been discussed with the patient prior to discharge. Advised patient to use as directed, wash all clothes and bedding, also cut hair. Last Vital Signs Date Time Temp Pulse Resp B/P (MAP) Pulse Ox O2 Delivery O2 Flow Rate FiO2 08/07/20 15:23 98.4 73 18 111/61 (78) 98 Room Air Disposition: HOME, SELF-CARE Condition: Stable Scripts Permethrin* (ELIMITE*) 60 Gm Cream..g. 1 APPLIC TOPIC ONCE, #60 GM 0 Refills Apply cream from head to toe; leave on for 8-14 hours before washing off with water; may reapply in 1 week if live mites appear. Prov: Paul Purcell 08/07/20 Patient Instructions: Head Lice, Pediatric Additional Instructions: Take medication as directed, follow primary care provider, if worsening symptoms return to the emergency room Paul Purcell Aug 07, 2020 15:34
[2020-08-07] MEDS ORDERED: PERMETHRIN60 GM TOPIC (15:37)
--- NOTE | 2020-08-07 15:45 | NUR ---
ED Nurse Note: Pt cleared by health care Provider for discharge. DC instructions/prescription was given and explained to pt and verbalized understanding of teachings. All medical deviecs such as ID band removed. Pt is AAO x4, ambulatory and left with all personal belongings.
[2020-08-07 16:06] VITALS: BP 111/61
== END 2020-08-07 15:45 | disposition home or self-care (01) ==
LOC: EMR 15:40
DX: B85.0 Pediculosis due to Pediculus humanus capitis (principal)
CPT/HCPCS: 99282